=== PATIENT | male | born 1970 | race Caucasian/White ===

== ENCOUNTER 2016-12-13 05:47 | Emergency (ER) | payer MEDICARE, MEDICAID ==
[~2016-12-13] VITALS: Ht 182.9 cm; Wt 112.0 kg
[~2016-12-13 05:47] MED LIST: CYCL10TA9 PO; DESV50TA; HYDR-229 PO; HYDR1TAB PO; LIDO20SO20 PO; MTF500T PO; NAPR-243 PO
[2016-12-13 05:56] VITALS: BP 146/98
[2016-12-13 06:04] LABS: BILIRUBIN,URINE NEGATIVE (NEGATIVE); KETONES,URINE 1+ (NEGATIVE); LEUKOCYTE ESTERASE ,URINE 2+ (NEGATIVE); NITRITE,URINE POSITIVE (NEGATIVE); PH,URINE 5 (5-9); PROTEIN,URINE 3+ (NEGATIVE); UROBILINOGEN,URINE 1 MG/DL (NORMAL)
[2016-12-13 06:14] LABS: BASOPHILS # (AUTO) 0.1 10^3/uL (0.0-0.1); BASOPHILS % (AUTO) 1 % (0-10); EOSINOPHILS # (AUTO) 0.3 10^3/uL (0.0-0.3); EOSINOPHILS % (AUTO) 4 % (0-10); LYMPHOCYTES % (AUTO) 26 % (12-44); MEAN CORPUSCULAR HEMOGLOBIN 29 PG (25-34); MEAN CORPUSCULAR HGB CONC 34 G/DL (32-36); MEAN CORPUSCULAR VOLUME 84 FL (80-99); MEAN PLATELET VOLUME 11.1 FL (7.4-10.4); MONOCYTES # (AUTO) 0.9 X 10^3 (0.0-1.0); MONOCYTES % (AUTO) 12 % (0-12); NEUTROPHILS # (AUTO) 4.4 X 10^3 (1.8-7.8); NEUTROPHILS % (AUTO) 58 % (42-75); PLATELET COUNT 194 10^3/uL (130-400); RED BLOOD COUNT 5.51 10^6/uL (4.35-5.85); RED CELL DISTRIBUTION WIDTH 13.5 % (10.0-14.5); WHITE BLOOD COUNT 7.6 10^3/uL (4.3-11.0)
[2016-12-13] MEDS ORDERED: KETOROLAC 30 MG/ML VIAL IVP ONE (06:15)
[2016-12-13] MEDS ORDERED: ONDANSETRON 4 MG/2 ML (SDV) Z0FRAN IVP ONE (06:15)
[2016-12-13] MEDS ORDERED: NS IV 1000 ML 1,000 ML IV ONE (06:28)
--- NOTE | 2016-12-13 06:28 | ED Abdominal Pain ---
General Chief Complaint: Abdominal/GI Problems Stated Complaint: LEFT SIDE PAIN,VOMITING Nursing Triage Note: LLQ ABDOMINAL PAIN Sepsis Screen: No Definite Risk Source of Information: Patient Exam Limitations: No Limitations History of Present Illness Time Seen By Provider: 06:05 Initial Comments This 46-year-old gentleman presents to the emergency room with sudden onset of left lower abdominal pain started at 02:00. Pain woke him from sleep. He has associated vomiting and gross hematuria. He denies any history of renal stones or other significant health problems. He reports a history of diabetes that resolved with weight loss. Allergies and Home Medications Allergies Coded Allergies: Penicillins (Verified Allergy, Unknown, RASH, 12/13/16) amoxicillin (Verified Adverse Reaction, Severe, yeast infection, 12/13/16) Home Medications Ciprofloxacin HCl 500 Mg Tablet, 500 MG PO BID, #20 Prescribed by: RODRIGO SILVESTRE on 12/13/16 0706 Hydrocodone/Acetaminophen 1 Each Tablet, 1-2 EACH PO Q6H PRN for PAIN, #30 Prescribed by: RODRIGO SILVESTRE on 12/13/16 0706 Ondansetron 4 Mg Tab.rapdis, 4 MG SL Q4H PRN for NAUSEA/VOMITING-1ST LINE, #10 Ref 1 Prescribed by: RODRIGO SILVESTRE on 12/13/16 0706 Review of Systems Constitutional: no symptoms reported EENTM: No Symptoms Reported Respiratory: No Symptoms Reported Cardiovascular: No Symptoms Reported Gastrointestinal: See HPI Genitourinary: See HPI Musculoskeletal: no symptoms reported Skin: no symptoms reported Psychiatric/Neurological: No Symptoms Reported Endocrine: See HPI Past Ejxxoqg-Jzryna-Xmboig Hx Patient Social History Alcohol Use: Denies Use Recreational Drug Use: Yes Drug of Choice: METH, CANNIBUS Smoking Status: Never a Smoker 2nd Hand Smoke Exposure: No Recent Foreign Travel: No Contact w/Someone Who Travel: No Recent Infectious Disease Expo: No Immunizations Up To Date Tetanus Booster (TDap): Unknown Seasonal Allergies Seasonal Allergies: No Surgeries HX Surgeries: No Respiratory Hx Respiratory Disorders: No Cardiovascular Hx Cardiac Disorders: No Neurological Hx Neurological Disorders: No Reproductive System Hx Reproductive Disorders: No Genitourinary Hx Genitourinary Disorders: No Gastrointestinal Hx Gastrointestinal Disorders: No Musculoskeletal Hx Musculoskeletal Disorders: No Endocrine Hx Endocrine Disorders: Yes (HAS BEEN OFF METFORMIN FOR 6 MONTHS BECAUSE OF WEIGHT LOSS) Endocrine Disorders: Diabetes, Non-Insulin dep HEENT HX ENT Disorders: No Cancer Hx Cancer: No Psychosocial Hx Psychiatric Problems: No Integumentary HX Skin/Integumentary Disorder: No Blood Transfusions Hx Blood Disorders: No Physical Exam Vital Signs VS - Last 72 Hours, by Label 12/13/16 05:56 Temp 98.1 Pulse 70 Resp 18 B/P (MAP) 146/98 Pulse Ox 100 O2 Delivery Room Air Capillary Refill : Less Than 3 Seconds General Appearance: WD/WN, moderate distress HEENT: normal ENT inspection Neck: normal inspection Respiratory: lungs clear, normal breath sounds, no respiratory distress, no accessory muscle use Cardiovascular: regular rate, rhythm, no edema, no murmur Gastrointestinal: normal bowel sounds, soft, tenderness (left lower quadrant) Extremities: normal inspection, no pedal edema Neurologic/Psychiatric: customer success director II-XII nml as tested, no motor/sensory deficits, alert, normal mood/affect, oriented x 3 Skin: normal color, warm/dry Progress/Results/Core Measures Results/Orders Lab Results Laboratory Tests Test 12/13/16 05:55 12/13/16 06:06 Range/Units Urine Color TELLO H Urine Clarity SLIGHTLY CLOUDY Urine pH 5 5-9 Urine Specific [place] 1.025 H 1.016-1.022 Urine Protein 3+ H NEGATIVE Urine Glucose (UA) NEGATIVE NEGATIVE Urine Ketones 1+ H NEGATIVE Urine Nitrite POSITIVE H NEGATIVE Urine Bilirubin NEGATIVE NEGATIVE Urine Urobilinogen 1 NORMAL MG/DL Urine Leukocyte Esterase 2+ H NEGATIVE Urine RBC (Auto) 5+ H NEGATIVE Urine RBC >100 H /HPF Urine WBC 2-5 /HPF Urine Crystals NONE /LPF Urine Bacteria TRACE /HPF Urine Casts NONE /LPF Urine Mucus NEGATIVE /LPF Urine Culture Indicated YES White Blood Count 7.6 4.3-11.0 10^3/uL Red Blood Count 5.51 4.35-5.85 10^6/uL Hemoglobin 15.7 13.3-17.7 G/DL Hematocrit 46 40-54 % Mean Corpuscular Volume 84 80-99 FL Mean Corpuscular Hemoglobin 29 25-34 PG Mean Corpuscular Hemoglobin Concent 34 32-36 G/DL Red Cell Distribution Width 13.5 10.0-14.5 % Platelet Count 194 130-400 10^3/uL Mean Platelet Volume 11.1 H 7.4-10.4 FL Neutrophils (%) (Auto) 58 42-75 % Lymphocytes (%) (Auto) 26 12-44 % Monocytes (%) (Auto) 12 0-12 % Eosinophils (%) (Auto) 4 0-10 % Basophils (%) (Auto) 1 0-10 % Neutrophils # (Auto) 4.4 1.8-7.8 X 10^3 Lymphocytes # (Auto) 2.0 1.0-4.0 X 10^3 Monocytes # (Auto) 0.9 0.0-1.0 X 10^3 Eosinophils # (Auto) 0.3 0.0-0.3 10^3/uL Basophils # (Auto) 0.1 0.0-0.1 10^3/uL Sodium Level 138 135-145 MMOL/L Potassium Level 4.2 3.6-5.0 MMOL/L Chloride Level 104 98-107 MMOL/L Carbon Dioxide Level 22 21-32 MMOL/L Anion Gap 12 5-14 MMOL/L Blood Urea Nitrogen 21 H 7-18 MG/DL Creatinine 1.33 H 0.60-1.30 MG/DL Estimat Glomerular Filtration Rate 58 BUN/Creatinine Ratio 16 Glucose Level 264 H 70-105 MG/DL Calcium Level 9.5 8.5-10.1 MG/DL Total Bilirubin 0.6 0.1-1.0 MG/DL Aspartate Amino Transf (AST/SGOT) 15 5-34 U/L Alanine Aminotransferase (ALT/SGPT) 25 0-55 U/L Alkaline Phosphatase 95 40-136 U/L Total Protein 7.0 6.4-8.2 G/DL Albumin 4.4 3.2-4.5 G/DL Micro Results Microbiology 12/13/16 Urine Culture - Preliminary, Resulted My Orders Orders - RODRIGO LOPEZ MD Ua Culture If Indicated (12/13/16 05:59) Urine Culture (12/13/16 05:55) Ct Abd/Pelvis Wo(Kidney Stone) (12/13/16 06:22) Ns Iv 1000 Ml (Sodium Chloride 0.9%) (12/13/16 06:28) Ciprofloxacin Tablet (Cipro Tablet) (12/13/16 07:15) Medications Given in ED Vital Signs/I&O Vital Sign - Last 12Hours 12/13/16 05:56 Temp 98.1 Pulse 70 Resp 18 B/P (MAP) 146/98 Pulse Ox 100 O2 Delivery Room Air Blood Pressure Mean: 114 Progress Note #1: Time: 06:27 Progress Note Patient seen and examined. CT scan, Toradol, and Zofran have been ordered. IV fluids will be ordered as well. Ureteral stone is suspected. Progress Note #2: Progress Note Patient's symptoms were controlled with Toradol and Zofran. He was dispensed a strainer to collect stones. His blood sugar was noted to be elevated. He was advised to seek follow-up with his primary care provider and observe a low carbohydrate low sugar diet. Diagnostic Imaging Diagonstic Imaging: CT Plain Films/CT/US/NM/MRI: abdomen, pelvis Comments Stone search CT of the abdomen and pelvis viewed by me and report reviewed. See report below: NAME: SANDHYA FIGUEROA [facility] REC#: [id number] PT STATUS: DEP ER : 1970 PHYSICIAN: RODRIGO LOPEZ MD ADMIT DATE: 12/13/16/ER Signed Date of Exam: 12/13/16 CT ABD/PELVIS WO(KIDNEY STONE) PROCEDURE: CT urinary tract, rule out kidney stone. TECHNIQUE: Multiple contiguous axial images were obtained through the abdomen and pelvis without the use of intravenous contrast. INDICATION: Left flank pain. FINDINGS: The lung bases appear clear. The liver, the gallbladder, the adrenals and the pancreas appear unremarkable for an unenhanced exam. There is a calcification in the spleen with no associated soft tissue mass probably related to prior infection. There is mild hydroureteronephrosis and the left kidney and ureter secondary to ureterovesical junction stone measuring 4 mm. No urinary bladder stone. There is no ureteric stone seen. There is a nonobstructive 2 mm stone in the upper pole of the right kidney, however. The abdominal size normal in caliber. No para-aortic significantly enlarged lymph node is seen. There is a laxity of the anterior abdominal wall with diastases of the recti. There is a tiny fat-containing left periumbilical hernia. There is no bowel obstruction. The appendix is normal. No fluid collection or free fluid in the abdomen or pelvis seen. The osseous structures appear grossly unremarkable except for degenerative changes of the lumbar spine and SI joints. IMPRESSION: 1. Obstructive 4 mm stone at the left ureterovesical junction resulting in mild left hydroureteronephrosis. 2. Another stone measuring 2 mm, nonobstructive in the upper pole of the right kidney is seen. 3. Abdominal wall laxity with diastases of the recti. Tiny fat-containing periumbilical hernia. Dictated by: Dictated on workstation # [id number] Dict: 12/13/16 0809 Trans: 12/13/16 1035 Interpreted by: JAYDEN GARCIA MD Electronically signed by: JAYDEN GARCIA MD 12/13/16 1035 Departure Impression Impression: Primary Impression: Left ureteral stone Additional Impressions: Ureteral obstruction, left Urinary tract infection Qualified Codes: N39.0 - Urinary tract infection, site not specified; R31.9 - Hematuria, unspecified Nausea and vomiting Qualified Codes: R11.2 - Nausea with vomiting, unspecified Hyperglycemia Disposition: 01 HOME, SELF-CARE Condition: Improved Departure-Patient Inst. Decision time for Depature: 07:00 Referrals: CAMILLE MEYERS MD (PCP) Primary Care Physician CARRILLO CLAY MD Patient Instructions: Kidney Stones in Adults, Urinary Tract Infections in Adults Add. Discharge Instructions: Drink plenty of clear liquids. Use your pain medication as prescribed. Do not drive, make important decisions, or work with machinery or dangerous tools while on the pain medication. Follow-up with your primary care provider and/or a urologist as soon as possible. Contact information for Dr. Clay, a local urologist, has been provided. Use the Zofran (ondansetron) as prescribed for nausea. Return to the ER for worsening symptoms or other complications. Strain your urine and bring any kidney stones collected to your follow-up appointment. All discharge instructions reviewed with patient and/or family. Voiced understanding. Scripts Ondansetron (Zofran Odt) 4 Mg Tab.rapdis 4 MG SL Q4H Y for NAUSEA/VOMITING-1ST LINE, #10 TAB 1 Refill Prov: RODRIGO LOPEZ MD 12/13/16 Hydrocodone/Acetaminophen (Hydrocodon -Acetaminophen 5-325) 1 Each Tablet 1-2 EACH PO Q6H Y for PAIN, #30 TAB Prov: RODRIGO LOPEZ MD 12/13/16 Ciprofloxacin HCl (Cipro) 500 Mg Tablet 500 MG PO BID, #20 TAB Prov: RODRIGO LOPEZ MD 12/13/16 Copy Copies To 1: CAMILLE MEYERS MD, JOSHUA T MD December 13, 2016 06:28
[2016-12-13 06:32] LABS: ALBUMIN 4.4 G/DL (3.2-4.5); BILIRUBIN,TOTAL 0.6 MG/DL (0.1-1.0); CALCIUM 9.5 MG/DL (8.5-10.1); CREATININE SERUM 1.33 MG/DL (0.60-1.30); POTASSIUM 4.2 MMOL/L (3.6-5.0)
[2016-12-13] MEDS ORDERED: ONDA4TAB8 SL (07:06)
[2016-12-13] MEDS ORDERED: CIPR-225 PO (07:06)
[2016-12-13] MEDS ORDERED: HYDR-3812 PO (07:06)
[2016-12-13] MEDS ORDERED: CIPROFLOXACIN 500 MG (CIPRO) TABLET PO ONE (07:15)
--- NOTE | 2016-12-13 08:32 | Diagnostic Imaging Report ---
PROCEDURE: CT urinary tract, rule out kidney stone. TECHNIQUE: Multiple contiguous axial images were obtained through the abdomen and pelvis without the use of intravenous contrast. INDICATION: Left flank pain. FINDINGS: The lung bases appear clear. The liver, the gallbladder, the adrenals and the pancreas appear unremarkable for an unenhanced exam. There is a calcification in the spleen with no associated soft tissue mass probably related to prior infection. There is mild hydroureteronephrosis and the left kidney and ureter secondary to ureterovesical junction stone measuring 4 mm. No urinary bladder stone. There is no ureteric stone seen. There is a nonobstructive 2 mm stone in the upper pole of the right kidney, however. The abdominal size normal in caliber. No para-aortic significantly enlarged lymph node is seen. There is a laxity of the anterior abdominal wall with diastases of the recti. There is a tiny fat-containing left periumbilical hernia. There is no bowel obstruction. The appendix is normal. No fluid collection or free fluid in the abdomen or pelvis seen. The osseous structures appear grossly unremarkable except for degenerative changes of the lumbar spine and SI joints. IMPRESSION: 1. Obstructive 4 mm stone at the left ureterovesical junction resulting in mild left hydroureteronephrosis. 2. Another stone measuring 2 mm, nonobstructive in the upper pole of the right kidney is seen. 3. Abdominal wall laxity with diastases of the recti. Tiny fat-containing periumbilical hernia. Dictated by: Dictated on workstation # [id number]
== END 2016-12-13 08:31 | disposition home or self-care (01) ==
LOC: EDUNIT# 05:47 → ER 05:50
DX: N20.2 Calculus of kidney with calculus of ureter (principal); N39.0 Urinary tract infection, site not specified; M62.08 Separation of muscle (nontraumatic), other site; E11.9 Type 2 diabetes mellitus without complications
CPT/HCPCS: 36415; 74176; 80053; 81000; 85025; 87088; 96374; 96375

== ENCOUNTER 2016-12-15 10:57 | Outpatient (RCR) | payer MEDICARE, MEDICAID | END 2017-03-15 | disposition home or self-care (01) | LOC: LAB 10:57 | PROVIDERS: ATTEND Urology | DX: N20.0 Calculus of kidney (principal) ==

== ENCOUNTER → 2016-12-15 | Outpatient (CLI) | payer MEDICARE, MEDICAID ==
[~2016-12-15] MED LIST changes: +CIPR-225 PO; +HYDR-3812 PO; +ONDA4TAB8 SL
--- NOTE | 2016-12-15 15:10 | Diagnostic Imaging Report ---
EXAM: Abdomen at 10:19 a.m. INDICATION: Abdominal pain TECHNIQUE: A single supine view was obtained. FINDINGS: The recent CT abdomen/pelvis exam performed on 12/13/16 noted partial obstruction of the left collecting system due to a 4 mm calculus at the ureterovesical junction. The calculus still appears to be present on this study. There is no other sign of urolithiasis or nephrolithiasis. There is no acute abnormality identified. IMPRESSION: 1. The small nonobstructive calculus at the ureterovesical junction on the left, seen previously, still appears to be present. The calculus seems unchanged in position. 2. No new abnormality has developed. Dictated by: Dictated on workstation # [id number]
== END ==
LOC: RAD 09:54
PROVIDERS: ATTEND Urology
DX: N20.1 Calculus of ureter (principal)
CPT/HCPCS: 74000

== ENCOUNTER 2018-03-10 17:22 | Emergency (ER) | payer MEDICARE, MEDICAID ==
[~2018-03-10] VITALS: Ht 185.4 cm; Wt 129.3 kg
[~2018-03-10 17:22] MED LIST changes: +ACHD5005 PO; -HYDR-3812 PO
[2018-03-10] MEDS ORDERED: LIDOCAINE 2% VISCOUS 15 ML UDC PO ONE (17:45)
--- NOTE | 2018-03-10 17:45 | ED Integumentary General ---
General Chief Complaint: Bite-Animal/Human/Insect Stated Complaint: BITE IN GENITAL AREA Source: patient Exam Limitations: no limitations History of Present Illness Date Seen by Provider: Mar 10, 2018 Time Seen by Provider: 17:37 Initial Comments to ER with a 4 to five-day history of bug bite to the shaft of his penis.he believes he got this when he was camping down near [facility]. He denies any dysuria. Denies any scrotal pain or swelling, this is around the glans. He states is very painful. He did not actually see anything bite him.he is sexually active but states "I have only been with one woman in the past year and a half. He has no systemic symptoms such as joint pains, nausea, fevers, dysuria.no scrotal symptoms. States his girlfriend wanted him to be seen 2 days ago but he was too embarrassed. Timing/Duration: just prior to arrival Severity: moderate Location: genitalia Possible Cause: no cause identified Allergies and Home Medications Allergies Coded Allergies: Penicillins (Verified Allergy, Unknown, RASH, 12/13/16) amoxicillin (Verified Adverse Reaction, Severe, yeast infection, 12/13/16) Home Medications Ciprofloxacin HCl 500 Mg Tablet, 500 MG PO BID Prescribed by: RODRIGO SILVESTRE on 12/13/16 0706 Hydrocodone Bit/Acetaminophen 1 Each Tablet, 1-2 EACH PO Q6H PRN for PAIN Prescribed by: RODRIGO SILVESTRE on 12/13/16 0706 Ondansetron 4 Mg Tab.rapdis, 4 MG SL Q4H PRN for NAUSEA/VOMITING-1ST LINE Prescribed by: RODRIGO SILVESTRE on 12/13/16 0706 Patient Home Medication List Home Medication List Reviewed: Yes Constitutional: see HPI EENTM: see HPI Respiratory: no symptoms reported Cardiovascular: no symptoms reported Genitourinary: see HPI Musculoskeletal: no symptoms reported Skin: see HPI, lesions Psychiatric/Neurological: No Symptoms Reported Past Rlngbqn-Kmocdy-Wbhkma Hx Patient Social History Drug of Choice: METH, CANNIBUS 2nd Hand Smoke Exposure: No Recent Foreign Travel: No Contact w/Someone Who Travel: No Immunizations Up To Date Tetanus Booster (TDap): Unknown Seasonal Allergies Seasonal Allergies: No Past Medical History Surgeries: No Respiratory: No Cardiac: No Neurological: No Reproductive Disorders: No Genitourinary: No Gastrointestinal: No Musculoskeletal: No Endocrine: No Diabetes, Non-Insulin dep HEENT: No Cancer: No Psychosocial: No Integumentary: No Physical Exam Vital Signs Vital Signs - First Documented 03/10/18 17:34 Temp 98.9 Pulse 89 Resp 20 B/P (MAP) 130/104 (113) O2 Delivery Room Air Capillary Refill : General Appearance: WD/WN, no apparent distress HEENT: PERRL/EOMI, normal ENT inspection Neck: non-tender, full range of motion Respiratory: no respiratory distress, no accessory muscle use Gastrointestinal: normal bowel sounds, non tender Neurologic/Psychiatric: alert, normal mood/affect, oriented x 3 Skin: normal color, warm/dry, other (no erythema or swelling crepitus or involvement whatsoever of the scrotum.) Skin Problem Location: other (genitalia) Skin Problem Character: other (maceration around the proximal glans of the penis with some erythema and faint swelling as well. There are 2 ulcerated lesions on the left side. He states this is very tender. He has no difficulty with urination reported. He has diabetes but does not require any medications.) Progress/Results/Core Measures Results/Orders My Orders Orders - RADHA LOYOLA APRN Wound Culture (03/10/18 17:34) Virus Culture (03/10/18 17:34) Nystatin Cream (Mycostatin Cream) (03/10/18 21:00) Lidocaine 2% Viscous 15 Ml (Xylocaine Vi (03/10/18 17:45) Mupirocin Ointment (Bactroban Ointment (03/10/18 21:00) Mupirocin Ointment (Bactroban Ointment (03/10/18 17:47) Medications Given in ED Current Medications Medications Dose Ordered Sig/Akiko Route Start Time Stop Time Status Last Admin Dose Admin Lidocaine HCl 5 ml ONCE ONCE PO 03/10/18 17:45 03/10/18 17:46 DC 03/10/18 17:50 5 ML Vital Signs/I&O 03/10/18 17:34 Temp 98.9 Pulse 89 Resp 20 B/P (MAP) 130/104 (113) O2 Delivery Room Air Departure Communication (Admissions) I would have concerns about a candidal balanitis versus herpes simplex. Culture has been obtained for virus culture and I'll put him on acyclovir empirically pending this culture. He's also been given mupirocin cream and nystatin cream to mix together and apply twice daily in addition to lidocaine topical for pain control. Impression Primary Impression: Balanitis Disposition: 01 HOME, SELF-CARE Condition: Stable Departure-Patient Inst. Decision time for Depature: 17:40 Referrals: CAMILLE MEYERS MD (PCP/Family) Primary Care Physician Patient Instructions: Nhan (COURTNEY) Add. Discharge Instructions: 1. Pull back the foreskin and wash the area gently with soap and water twice daily. Then mix the antifungal and antibiotic cream together and applied twice daily. As embarrassing as this may be for you, it is very important that you follow-up with your primary care provider within 1 week for recheck. Return to ER for any worsening. I suspect this is a condition called 'balanitis' from yeast but the other thing this could be is a herpes simplex outbreak. The virus culture takes about a week to come back, the other wound culture takes about 3 days. We will call you if any additional treatment as needed. It is very important to follow-up however. Avoid sexual intercourse until this is resolved.All discharge instructions reviewed with patient and/or family. Voiced understanding. Scripts Acyclovir (Acyclovir) 200 Mg Capsule 200 MG PO Q4H, #28 CAP Prov: RADHA LOYOLA APRN 03/10/18 Copy Copies To 1: CAMILLE MEYERS MD, PETER J APRN Mar 10, 2018 17:45
[2018-03-10] MEDS ORDERED: MUPIROCIN 2% OINT 22 GM (BACTROBAN) TUBE ONE (17:47)
[2018-03-10] MEDS ORDERED: ACYC200C PO (17:58)
[2018-03-10] MEDS ORDERED: ACYCLOVIR 400 MG TABLET (ZOVIRAX) PO SCH (18:00)
[2018-03-10 18:15] VITALS: BP 130/104
[2018-03-10] MEDS ORDERED: MUPIROCIN 2% OINT 22 GM (BACTROBAN) TUBE TOP SCH (21:00)
[2018-03-10] MEDS ORDERED: NYSTATIN CREAM (MYCOSTATIN) 30 GM TUBE TP SCH (21:00)
== END 2018-03-10 18:17 | disposition home or self-care (01) ==
LOC: EDUNIT# 17:22 → ER 17:24
DX: N48.1 Balanitis (principal); E11.9 Type 2 diabetes mellitus without complications; F12.10 Cannabis abuse, uncomplicated; F15.10 Other stimulant abuse, uncomplicated; Z88.0 Allergy status to penicillin
CPT/HCPCS: 87070; 87205; 87252; 99283

== ENCOUNTER 2018-08-05 09:34 | Emergency (ER) | payer MEDICARE, MEDICAID ==
[~2018-08-05] VITALS: Ht 182.9 cm; Wt 117.9 kg
[~2018-08-05 09:34] MED LIST changes: +ACYC200C PO
[2018-08-05] MEDS ORDERED: TETANUS,DIPTH,PERTUSS P/F (BOOSTRIX) 0.5 ML VIAL IM ONE (09:45)
[2018-08-05] MEDS ORDERED: LISI10TA2 (09:49)
--- NOTE | 2018-08-05 10:28 | Diagnostic Imaging Report ---
INDICATION: Dog bite to the right third finger. TIME OF EXAM: 10:34 AM FINDINGS: Multiple views of the right third finger were obtained. The alignment is normal. The phalanges appear intact. No fractures are seen. No definite radiopaque soft tissue foreign body is seen. IMPRESSION: No acute abnormality is detected. Dictated by: Dictated on workstation # [id number]
[2018-08-05] MEDS ORDERED: CLIN300C11 PO (10:44)
--- NOTE | 2018-08-05 10:44 | ED Upper Extremity ---
General Chief Complaint: Bite-Animal/Human/Insect Stated Complaint: R HAND DOG BITE Nursing Triage Note: ATTEMPTING TO LET NEIGHBORS [employer] OUT OF THE THE HOUSE AND THE DOG BIT HIM ON HIS RIGHT MIDDLE FINGER. PT STATES IMMUNIZATIONS ARE UTD ON THE DOG ET HE DOES NOT WANT TO FILE A POLICE REPORT. Nursing Sepsis Screen: No Definite Risk Source: patient Exam Limitations: no limitations History of Present Illness Date Seen by Provider: Aug 05, 2018 Time Seen by Provider: 10:42 Initial Comments Patient went to take care of his neighbor's dog while they are out of town, the dog bit the right middle finger. Patient needs a tetanus vaccination. Dog was up -to-date on its own vaccinations including rabies. Onset: just prior to arrival Severity: moderate Pain/Injury Location: right 3rd finger Allergies and Home Medications Allergies Coded Allergies: Penicillins (Verified Allergy, Unknown, RASH, 12/13/16) amoxicillin (Verified Adverse Reaction, Severe, yeast infection, 12/13/16) Patient Home Medication List Home Medication List Reviewed: Yes Review of Systems Constitutional: see HPI EENTM: see HPI Respiratory: no symptoms reported Cardiovascular: no symptoms reported Genitourinary: no symptoms reported Musculoskeletal: no symptoms reported Skin: see HPI Psychiatric/Neurological: No Symptoms Reported Past Ymyjrhu-Yajhnh-Mainqk Hx Patient Social History Alcohol Use: Past History Recreational Drug Use: Yes Drug of Choice: POT Smoking Status: Never a Smoker 2nd Hand Smoke Exposure: No Recent Foreign Travel: No Contact w/Someone Who Travel: No Recent Infectious Disease Expo: No Immunizations Up To Date Tetanus Booster (TDap): More than 5yrs Seasonal Allergies Seasonal Allergies: No Past Medical History Surgeries: No Respiratory: No Cardiac: Yes Hypertension Neurological: No Reproductive Disorders: No Genitourinary: No Gastrointestinal: No Musculoskeletal: No Endocrine: No Diabetes, Non-Insulin dep HEENT: No Cancer: No Psychosocial: No Integumentary: No Blood Disorders: No Physical Exam Vital Signs Vital Signs - First Documented 08/05/18 09:38 Temp 98.0 Pulse 86 Resp 16 B/P (MAP) 160/112 (128) Pulse Ox 98 O2 Delivery Room Air Capillary Refill : Less Than 3 Seconds Height, Weight, BMI Height: 6'1.00" Weight: 260lbs. oz. 117.980114vn; BMI Method:Stated General Appearance: WD/WN, no apparent distress HEENT: PERRL/EOMI, normal ENT inspection Respiratory: no respiratory distress, no accessory muscle use Gastrointestinal: non tender, soft Shoulder: normal inspection, non-tender Elbow/Forearm: normal inspection, non-tender Wrist: Yes normal inspection, Yes non-tender Hand: Right, laceration (superficial lacerations/abrasions to the dorsal aspect of the right middle finger without deformity or swelling or erythema) Neurologic/Psychiatric: alert, normal mood/affect, oriented x 3 Skin: normal color, warm/dry Progress/Results/Core Measures Results/Orders Medications Given in ED Current Medications Medications Dose Ordered Sig/Akiko Route Start Time Stop Time Status Last Admin Dose Admin Diphtheria/ Tetanus/Acell Pertussis 0.5 ml ONCE ONCE IM 08/05/18 09:45 08/05/18 09:46 DC 08/05/18 10:28 0.5 ML Vital Signs/I&O 08/05/18 09:38 Temp 98.0 Pulse 86 Resp 16 B/P (MAP) 160/112 (128) Pulse Ox 98 O2 Delivery Room Air Blood Pressure Mean: 128 Departure Impression Primary Impression: Dog bite Qualified Codes: W54.0XXA - Bitten by dog, initial encounter Disposition: HOME, SELF-CARE Condition: Stable Departure-Patient Inst. Decision time for Depature: 10:43 Referrals: CAMILLE MEYERS MD (PCP/Family) Primary Care Physician Patient Instructions: Animal Bites (DC) Add. Discharge Instructions: 1. Wash this twice daily with soap and water. Return to ER for any redness, swelling or sign of infection. Take antibiotics as directed starting today. All discharge instructions reviewed with patient and/or family. Voiced understanding. Scripts Clindamycin HCl (Clindamycin HCl) 300 Mg Capsule 300 MG PO TID, #9 CAP Prov: RADHA LOYOLA APRN 08/05/18 RADHA LOYOLA APRN Aug 05, 2018 10:44
[2018-08-05 10:50] VITALS: BP 160/112
== END 2018-08-05 10:50 | disposition home or self-care (01) ==
LOC: EDUNIT# 09:34 → ER 09:35
DX: S61.252A Open bite of right middle finger without damage to nail, initial encounter (principal); I10 Essential (primary) hypertension; E11.9 Type 2 diabetes mellitus without complications; Z88.0 Allergy status to penicillin; W54.0XXA Bitten by dog, initial encounter
CPT/HCPCS: 73140; 90715

== ENCOUNTER 2018-08-20 09:21 | Outpatient (CLI) | payer MEDICARE, MEDICAID ==
[~2018-08-20] VITALS: Ht 185.4 cm; Wt 117.9 kg
[~2018-08-20 09:21] MED LIST changes: +CLIN300C11 PO; +LISI10TA2 PO
[2018-08-20] MEDS ORDERED: OMEP20CA12 PO (09:52)
[2018-08-20] MEDS ORDERED: SUCR1TAB PO (09:52)
== END 2018-08-20 09:55 | disposition home or self-care (01) ==
LOC: PREOP 09:21
PROVIDERS: ATTEND Surgery
DX: Z01.818 Encounter for other preprocedural examination (principal)

== ENCOUNTER 2018-08-21 10:48 | Day surgery (SDC) | payer MEDICARE, MEDICAID ==
[~2018-08-21] VITALS: Ht 185.4 cm; Wt 117.9 kg
[~2018-08-21 10:48] MED LIST changes: +OMEP20CA12 PO; +SUCR1TAB PO
[2018-08-21 10:50] VITALS: BP 136/97
[2018-08-21] MEDS ORDERED: NS IV 500 ML 500 ML IV PRN (10:54)
[2018-08-21] MEDS ORDERED: HURRICAINE EXT TUBE (BENZOCAINE) XX PRN (11:00)
[2018-08-21] MEDS ORDERED: LIDOCAINE JELLY 2% 6 ML SYRINGE MM PRN (11:00)
[2018-08-21] MEDS ORDERED: MIDAZOLAM 2 MG/2 ML (VERSED) VIAL IVP ONE (11:00)
[2018-08-21] MEDS ORDERED: fentaNYL INJECTION 100 MCG/2 ML AMP IVP ONE (11:00)
--- NOTE | 2018-08-21 11:09 | Conscious Sedation/ASA ---
Conscious Sedation Pre-Proced Time 11:00 ASA Score 2 For ASA 3 and 4: Consider anesthesia and medical clearance. Also, for patients with a history of failed moderate sedation consider anesthesia. Airway Lungs Heart ASA score ASA 1: a normal healthy patient ASA 2: a patient with a mild systemic disease (mid diabetes, controlled hypertension, obesity ASA 3: a patient with a severe systemic disease that limits activity (angina , COPD, prior Myocardial infarction) ASA 4: a patient with an incapacitating disease that is a constant threat to life (CHF, renal failure) ASA 5: a moribund patient not expected to survive 24 hrs. (ruptured aneurysm) ASA 6: a declared brain patient whose organs are being harvested. For emergent operations, add the letter E after the classification Mallampati Classification Grade 2 Sedation Plan Analgesia, Amnesia, Plan communicated to team members, Discussed options with patient/fam, Discussed risks with patient/fam The patient is an appropriate candidate to undergo the planned procedure, sedation, and anesthesia. The patient immediately re-assessed prior to indication. SNEHAL STREETER MD Aug 21, 2018 11:09
--- NOTE | 2018-08-21 11:10 | Progress Note-Pre Operative ---
Pre-Operative Progress Note H&P Reviewed The H&P was reviewed, patient examined and no changes noted. Date Seen by Provider: Aug 21, 2018 Time Seen by Provider: 11:00 Date H&P Reviewed: Aug 21, 2018 Time H&P Reviewed: 11:00 Pre-Operative Diagnosis: GERD, rectal bleed SNEHAL STREETER MD Aug 21, 2018 11:10
[2018-08-21] MEDS ORDERED: ONDANSETRON 4 MG/2 ML (SDV) Z0FRAN IV PRN (11:15)
[2018-08-21] MEDS ORDERED: ACETAMINOPHEN 325 MG TABLET PO PRN (11:15)
[2018-08-21] MEDS ORDERED: morphine INJ 10 MG/ML 1ML (SYR OR VIAL) IV PRN (11:15)
[2018-08-21] MEDS ORDERED: HYDROcodone/APAP 5 MG/325 MG (LORTAB) TAB PO PRN (11:15)
[2018-08-21] MEDS ORDERED: PROPOFOL INJECTION 50 ML IV ONE ×3 (11:37→12:39)
[2018-08-21] MEDS ORDERED: MIDAZOLAM 5 MG/5 ML (VERSED) VIAL ONE (11:37)
[2018-08-21] MEDS ORDERED: MIDAZOLAM 2 MG/2 ML (VERSED) VIAL ONE ×2 (11:39)
[2018-08-21] MEDS ORDERED: LIDOCAINE JELLY 2% 6 ML SYRINGE ONE (12:13)
--- NOTE | 2018-08-21 13:02 | Anesthesia-General Post-Op ---
MAC Patient Condition Mental Status/LOC: Same as Preop Cardiovascular: Satisfactory Nausea/Vomiting: Absent Respiratory: Satisfactory Pain: Controlled Complications: Absent Post Op Complications Complications None Follow Up Care/Instructions Patient Instructions None needed. Anesthesiology Discharge Order Discharge Order Patient is doing well, no complaints, stable vital signs, no apparent adverse anesthesia problems. No complications reported per nursing. LENA WHALEN CRNA Aug 21, 2018 13:02
--- NOTE | 2018-08-21 13:03 | Progress Note-Post Operative ---
Post-Operative Progess Note Surgeon (s)/Library Aide (s) Surgeon SNEHAL STREETER MD Library Aide: none Pre-Operative Diagnosis GERD, rectal bleed Post-Operative Diagnosis reflux esophagitis(stage 2), no HH, moderate diffuse gastritis. chronic stage 2 ext and int hemorrhoids. Procedure & Operative Findings Date of Procedure 08/21/18 Procedure Performed/Findings EGD with bx. Colonoscopy. Anesthesia Type MAC Estimated Blood Loss Estimated blood loss (mL): minimal Specimens/Packing Specimens Removed GE jxn , antrum SNEHAL STREETER MD Aug 21, 2018 13:03
--- NOTE | 2018-08-21 13:04 | Discharge Inst-Surgical ---
D/C Lap Instructions-SYL Will call for follow up and further directions. Activity as tolerated High Fiber Diet 25g or more per day Avoid Alcohol, Caffeine, Spicy [place] and Acid foods. Drink 64 fluid oz or more of fluids per day. Symptoms to Report: Fever over 101 degree F, Nausea/Vomiting If any problems/questions: Contact your physician or go to Emergency Room SNEHAL STREETER MD Aug 21, 2018 13:04
[2018-08-21 13:20] VITALS: BP 136/97
[2018-08-21 13:42] VITALS: BP 124/87
[2018-08-21 13:50] VITALS: BP 124/87
--- NOTE | 2018-08-21 21:27 | OPERATIVE REPORT ---
DATE OF SERVICE: 08/21/2018 ATTENDING PRIMARY CARE PHYSICIAN: Wilma Rose MD PREOPERATIVE DIAGNOSIS: Rectal bleeding, gastroesophageal reflux disease. POSTOPERATIVE DIAGNOSES: Reflux esophagitis stage II, no significant hiatal hernia, moderate gastritis, no distal obstructions. Chronic stage II external and internal hemorrhoids. No mucosal inflammatory changes. PROCEDURE: EGD with biopsy, colonoscopy. SURGEON: Snehal Streeter MD ANESTHESIA: Monitored anesthesia care. ESTIMATED BLOOD LOSS: Minimal. FINDINGS: EGD, reflux esophagitis stage II, no significant hiatal hernia. There were approximately 2 to 3 very small inflammatory polyps which appeared benign. There was some moderate severity of gastritis. There were no formal ulcerations, polyps or any neoplasms identified. Pylorus and duodenum appeared normal. No distal obstructions. Colonoscopy: Chronic stage II external and internal hemorrhoids. Prostate gland was palpable and appeared normal. The remainder of the rectum and colon were normal. There were no mucosal inflammatory changes to indicate any inflammatory bowel disease as well as no polyps or any neoplasms. DISPOSITION: The patient tolerated the procedure well. INDICATIONS: The patient is a 40-year-old male known to us. In April 2018, he became part of our bariatric surgical weight loss program for the laparoscopic gastric sleeve resection. He meets the medical criteria and does have comorbidities including gastroesophageal reflux disease as well as diabetes. He is in need of an EGD and colonoscopy. He does report that for the past several years he has had intermittent episodes of red blood per rectum. He does not report any major issues with diarrhea, no constipation as well as no family history of colon cancer. He also has had a longstanding history of gastroesophageal reflux disease; however, has had numerous risk factors in the past including a heavy smoking which he quit in 2010 as well as methamphetamine and cocaine use and quit in 2001 and currently does smoke marijuana and did previously drink alcohol as well. DESCRIPTION OF PROCEDURE: The patient was brought to the endoscopy suite, laid in left lateral decubitus position. After adequate IV pain and sedative medications and monitored anesthesia care, the mouthpiece was applied. The endoscope was placed in the mouth, visualizing the pharynx and hypopharyngeal region. Vocal cords, epiglottis and vallecula identified and appeared to be normal. Endoscope was gently intubated at the esophageal opening and esophagus insufflated. The endoscope was then advanced to the first, second and third portion of the esophagus at the level of the GE junction, a reflux esophagitis stage II identified. There were no ulcers or strictures identified in this region. A biopsy was taken using forceps with visualization of good hemostasis. The endoscope was then easily advanced in the stomach and endoscope retroflexed visualizing no significant hiatal hernia. In the fundus of the gallbladder, there were approximately three very small red inflammatory polyps which were very small, approximately 1 to 2 mm in size. There was moderate severity gastritis. There were no formal ulcerations, polyps or any neoplasms. A biopsy was taken of the antrum to rule out H. pylori with forceps with visualization of good hemostasis. The endoscope was then advanced to the pylorus into the first and second portion of the duodenum, which appeared normal and no distal obstructions. The endoscope was then slowly withdrawn while taking a second look and suctioning of residual air with no additional findings. The patient tolerated this portion of the procedure well. We will recommend continued medical management with the necessary lifestyle and diet accommodation including small and more frequent meals, avoiding to eating at night as well as head elevation while lying supine. He also needs to avoid caffeinated beverages, spicy, greasy and acidic foods. Any type of weight loss will also help with this type of symptoms. Under the same anesthesia, we then proceeded with colonoscopy portion of procedure. A digital rectal examination was performed, which revealed chronic stage II external and internal hemorrhoids not actively edematous or inflamed and no bleeding. Normal sphincter tone was felt and there were no palpable masses. Prostate gland was palpable and appeared normal. The endoscope was then intubated to the anus, rectum and gently insufflated. The endoscope was then advanced to the valves of King of the rectum with no mucosal inflammatory change to indicate any active proctitis. We then proceeded to the sigmoid colon where no diverticulosis identified. The endoscope was then advanced to the remainder of the descending, transverse and ascending colon to the cecum. These segments were normal. There were no mucosal inflammatory changes nor any polyps or any neoplasms identified. The endoscope was slowly withdrawn while taking a second look and suctioning residual air with no additional findings. The patient tolerated the procedure well. We will recommend medical management with high fiber diet with at least 30 grams of fiber per day as well as at least 64 fluid ounces of water daily to promote soft stools on a daily basis. Job ID: [id number] DocumentID: [id number] Dictated Date: 08/21/2018 12:59:28 Pump Service Supervisor Date: 08/21/2018 21:26:46 Dictated By: SNEHAL STREETER MD
== END 2018-08-21 13:50 | disposition home or self-care (01) ==
LOC: ENDO 10:48
PROVIDERS: ATTEND Surgery
DX: K21.0 Gastro-esophageal reflux disease with esophagitis (principal); K29.70 Gastritis, unspecified, without bleeding; K64.1 Second degree hemorrhoids; E11.9 Type 2 diabetes mellitus without complications; I10 Essential (primary) hypertension; Z79.899 Other long term (current) drug therapy; Z88.0 Allergy status to penicillin; Z87.891 Personal history of nicotine dependence

== ENCOUNTER → 2018-12-10 | Outpatient (CLI) | payer MEDICARE, MEDICAID | LOC: LAB 08:45 | PROVIDERS: ATTEND Urology | DX: N40.0 Benign prostatic hyperplasia without lower urinary tract symptoms (principal); E29.1 Testicular hypofunction | CPT/HCPCS: 36415; 84153; 84402; 84403 ==

== ENCOUNTER → 2020-03-17 | Outpatient (CLI) | payer MEDICARE, MEDICAID ==
[~2020-03-17] MED LIST changes: -OMEP20CA12 PO; +OMEP20CA18 PO
--- NOTE | 2020-03-17 16:57 | Diagnostic Imaging Report ---
Indication: Left ankle pain 3 views of the left ankle show no fracture, dislocation or other acute abnormalities. IMPRESSION: Negative left ankle Dictated by: Dictated on workstation # [id number]
== END ==
LOC: RAD 15:57
PROVIDERS: ATTEND Family Medicine
DX: M25.572 Pain in left ankle and joints of left foot (principal)
CPT/HCPCS: 73610

== ENCOUNTER 2020-06-20 22:20 | Emergency (ER) | payer MEDICARE, MEDICAID ==
[~2020-06-20] VITALS: Ht 182 cm; Wt 120.0 kg
--- NOTE | 2020-06-20 22:49 | ED Upper Extremity ---
General Chief Complaint: Laceration Stated Complaint: R HAND LACERATION Nursing Triage Note: PT TO ED W/ C/O LACERATIONS TO 3RD ET 4TH FINGERS OF RIGHT HAND. PT REPORTS WAS ARGUING W/ HIS 22Y/O/SON ET STATES HE "HIT A GLASS PIE MACIEL ET BROKE IT." PT ABLE TO MOVE HIS FINGERS W/O DIFFICULTY AT THIS TIME. Nursing Sepsis Screen: No Definite Risk History of Present Illness Date Seen by Provider: Jun 20, 2020 Time Seen by Provider: 22:25 Initial Comments 50-year-old male presents for lacerations to his right 3rd-4th fingers, volar surface. He states that he hit a Glass pie plate and it broke causing lacerations. He is a diabetic and takes metformin. He reports his last tetanus was 2 years ago. Onset: just prior to arrival Pain/Injury Location: right 3rd finger, right 4th finger Method of Injury: incised Allergies and Home Medications Allergies Coded Allergies: Penicillins (Verified Allergy, Unknown, RASH, 12/13/16) amoxicillin (Verified Adverse Reaction, Severe, yeast infection, 12/13/16) Home Medications Lisinopril 10 Mg Tablet, 10 MG PO DAILY, (Reported) Omeprazole 20 Mg Capsule.dr, 20 MG PO BID, (Reported) Sucralfate 1 Gm Tablet, 1 GM PO QID, (Reported) Patient Home Medication List Home Medication List Reviewed: Yes Review of Systems Constitutional: no symptoms reported, see HPI Skin: see HPI, other (abrasion right third finger, laceration right fourth finger.) All Other Systems Reviewed Negative Unless Noted: Yes Past Eollxyk-Lufitf-Ahebkt Hx Past Med/Social Hx: Reviewed Nursing Past Med/Soc Hx Patient Social History Alcohol Use: Occasionally Uses Recreational Drug Use: Yes (METH AND POT) Drug of Choice: POT, 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 Former Smoker, Quit: Aug 20, 2011 2nd Hand Smoke Exposure: No Recent Foreign Travel: No Contact w/Someone Who Travel: No Recent Infectious Disease Expo: No Recent Hopitalizations: No Physical Abuse: No Sexual Abuse: No Mistreated: No Fear: No Immunizations Up To Date Tetanus Booster (TDap): More than 5yrs Seasonal Allergies Seasonal Allergies: No Past Medical History Surgeries: Yes (knee scope, ) Respiratory: No Cardiac: Yes Hypertension Neurological: No Reproductive Disorders: No Genitourinary: No Gastrointestinal: Yes (rectal bleeding/abd pain) Musculoskeletal: No Endocrine: Yes Diabetes, Non-Insulin dep HEENT: No Cancer: No Psychosocial: No Integumentary: No Blood Disorders: No Physical Exam Vital Signs Vital Signs - First Documented 06/20/20 22:26 Temp 35.5 Pulse 93 Resp 20 B/P (MAP) 173/105 (127) Pulse Ox 99 O2 Delivery Room Air Capillary Refill : Less Than 3 Seconds Height, Weight, BMI Height: 6'1.00" Weight: 260lbs. 0.0oz. [id number]; 36.00 BMI Method:Stated General Appearance: WD/WN, no apparent distress Cardiovascular: normal peripheral pulses, regular rate, rhythm Respiratory: chest non-tender, lungs clear, normal breath sounds Hand: normal ROM, Right, abrasions (right third finger over the middle phalanx no active bleeding. cleaned with sterile water, triple antibiotic oint and bandaid applied), laceration (right fourth finger over the middle phalanx 1 cm) Neurologic/Tendon: normal sensation, normal tendon functions Neurologic/Psychiatric: no motor/sensory deficits, alert, normal mood/affect, oriented x 3 Skin: normal color, warm/dry Procedures/Interventions Wound Location: Upper Extremities (right fourth finger) Wound Length (cm): 1 Wound's Depth, Shape: superficial Wound Explored: clean Irrigated w/ Saline (ccs): 250 Volume Anesthetic (ccs): 2 Wound Debrided: minimal Suture: Ethlion Suture Size: 4-0 Number of Sutures: 2 Sterile Dressing Applied?: Yes Progress Wound well approximated, bulky sterile dressing applied. Patient tolerated procedure well. Progress/Results/Core Measures Results/Orders Vital Signs/I&O 06/20/20 22:26 Temp 35.5 Pulse 93 Resp 20 B/P (MAP) 173/105 (127) Pulse Ox 99 O2 Delivery Room Air Blood Pressure Mean: 127 Departure Impression Primary Impression: Abrasion of finger Qualified Codes: S60.419A - Abrasion of unspecified finger, initial encounter Additional Impression: Laceration of finger of right hand Qualified Codes: S61.214A - Laceration without foreign body of right ring finger without damage to nail, initial encounter Disposition: 01 HOME, SELF-CARE Condition: Improved Departure-Patient Inst. Decision time for Depature: 22:45 Referrals: CAMILLE MEYERS MD (PCP/Family) Primary Care Physician Patient Instructions: Laceration Repair With Stitches (DC), Skin Abrasions (DC) Add. Discharge Instructions: Keep the dressing dry and in place for 24 hours, you may re-inforce if needed. Do not submerge the wound in standing water (tub, pool, sink, clark, etc). Leave sutures in place, return to Emergency Dept or your Primary Care Provider in 7-10 days for removal. You may shower, do not have water hit directly over wound. Clean with peroxide after shower, leave open to air when at home, cover with dressing or band-aid when out of the house. Watch for signs of infection: Redness, increased tenderness, warmth, discolored drainage or foul smelling drainage. Return to the emergency department for new, urgent health care problems. All discharge instructions reviewed with patient and/or family. Voiced understanding. NATALIE ATKINSON Jun 20, 2020 22:49
--- NOTE | 2020-06-20 22:59 | NUR ---
PT DISCHARGED TO HOME W/ INSTR. PT TO RETURN IN 7-10 DAYS FOR SUTURE REMOVAL, SOONER FOR ANY SIGNS OR SYMPTOMS OF INFECTION OR OTHER CONCERNS. PT VOICED UNDERSTANDING
[2020-06-21 02:15] VITALS: BP 0/0
== END 2020-06-20 22:59 | disposition home or self-care (01) ==
LOC: EDUNIT# 22:20 → ER 22:22
DX: S61.214A Laceration without foreign body of right ring finger without damage to nail, initial encounter (principal); S60.412A Abrasion of right middle finger, initial encounter; I10 Essential (primary) hypertension; E11.9 Type 2 diabetes mellitus without complications; Z79.84 Long term (current) use of oral hypoglycemic drugs; Z87.891 Personal history of nicotine dependence; Z88.0 Allergy status to penicillin; Z88.1 Allergy status to other antibiotic agents; W25.XXXA Contact with sharp glass, initial encounter
CPT/HCPCS: 12001

== ENCOUNTER → 2020-08-03 | Outpatient (CLI) | payer MEDICARE, MEDICAID ==
[~2020-08-03] MED LIST changes: -CLIN300C11 PO; +CLIN300C12 PO
--- NOTE | 2020-08-03 10:45 | Diagnostic Imaging Report ---
INDICATION: Foot pain COMPARISON: None. FINDINGS: 3 views of the left foot demonstrate no acute fracture or dislocation. There are no focal osseous lesions. There is no soft tissue swelling. Joint spaces are well maintained. No radiopaque foreign bodies are seen. IMPRESSION: No acute fractures or dislocations of the left foot. Dictated by: Dictated on workstation # [id number]
== END ==
LOC: RAD 10:26
PROVIDERS: ATTEND Family Medicine
DX: M79.672 Pain in left foot (principal)
CPT/HCPCS: 73630

== ENCOUNTER → 2021-01-25 | Outpatient (CLI) | payer MEDICARE, MEDICAID ==
[~2021-01-25] VITALS: Ht 182.9 cm; Wt 129.5 kg
[~2021-01-25] MED LIST changes: +ACYC-108 PO; -ACYC200C PO; +AMLO-251 PO; +GLIM4TAB5 PO; -LISI10TA2 PO; +LISI10TA25 PO; +METF-399 PO
== END | disposition home or self-care (01) ==
LOC: PREOP 09:07
PROVIDERS: ATTEND Surgery
DX: Z01.818 Encounter for other preprocedural examination (principal)

== ENCOUNTER 2021-01-27 08:34 | Inpatient (IN) | payer MEDICARE, MEDICAID ==
--- NOTE | 2021-01-26 07:09 | HISTORY AND PHYSICAL ---
DATE OF SERVICE: PROCEDURE DATE: 01/27/2021. ATTENDING PRIMARY CARE PHYSICIAN: Dr. Rose. HISTORY OF PRESENT ILLNESS: The patient is a 50-year-old male with morbid obesity, who was interested in the laparoscopic gastric sleeve resection and meets the medical criteria for bariatric surgery. He reports that he began to gain the majority of his adult weight 19 years ago after he reports that he had clean from methamphetamine. He reports that since that time, he has tried diets such as a keto diet, low calorie diet, Weight Watchers as well as the avoidance of any sugar. He reports that he had little success with this diet. He reports that he has also tried exercising such as weight training as well as walking on a treadmill; however, would have little success. He also reports that he did try the medication phentermine in the past and he did lose a significant amount of weight. However, again this weight back after stopping the medication. His medical comorbidities related to obesity include type 2 diabetes, gastroesophageal reflux disease, and hypertension. PAST MEDICAL HISTORY: Type 2 diabetes, hypertension, history of alcoholism, history of methamphetamine use, gastroesophageal reflux disease. PAST SURGICAL HISTORY: Left knee arthroscopy in 2016. ALLERGIES: PENICILLIN. MEDICATIONS: Lisinopril, metformin. SOCIAL HISTORY: Previous for tobacco smoker, 2 packs per day for 25 years, quit in 2013. Previous for IV methamphetamine use, quit in 2001. Previous for alcoholism for 15 years, quit in 2018. FAMILY HISTORY: Father, diabetes, hypertension. Mother, diabetes, hypertension, and stroke. VITAL SIGNS: Blood pressure 163/98. Current weight is 275.7, height 5 feet 11 inches with a body mass index 38.5. REVIEW OF SYSTEMS: Well-nourished male in no acute distress. He is not experiencing any shortness of breath or difficulty breathing. No chest pain, palpitations or diaphoresis. No nausea, vomiting or abdominal pain. No diarrhea or constipation. No red blood per rectum. No dark tarry stools. No fever or chills. No recent overt weight loss. All other review of systems negative. PHYSICAL EXAMINATION: CHEST: Clear. Good breath sounds bilaterally. HEART: Regular, no murmurs. EXTREMITIES: No lower extremity edema. Negative Homans sign. HEENT: No scleral icterus. NECK: No cervical lymphadenopathy. ABDOMEN: Soft, nontender, nondistended. SKIN: Warm, dry and pink. NEUROLOGIC: Awake, alert and oriented x3. ASSESSMENT AND PLAN: A 50-year-old male with morbid obesity who is interested in the laparoscopic gastric sleeve resection and does meet the medical criteria for bariatric surgery. His medical comorbidities related to obesity include type 2 diabetes, gastroesophageal reflux disease, and hypertension. He has completed the necessary tests and evaluations. He was; however, found to have a small hiatal hernia with spontaneous gastroesophageal reflux disease on the upper GI. However, his other tests and evaluations were normal. At this time, we will proceed with scheduling him for the laparoscopic gastric sleeve resection with possible hiatal hernia repair. The risks and benefits of the procedure as well as the procedure and home care instructions were explained to the patient. It was also discussed with the patient in depth about preoperative as well as postoperative diet and the need to continue with a high protein, low carbohydrate diet with regular scheduled exercise after he is recovered from his surgery. The patient verbalized understanding of instructions and agrees to proceed as planned. Job ID: [id number] DocumentID: [id number] Dictated Date: 01/24/2021 10:28:02 Solutions Developer Date: 01/24/2021 11:20:30 Dictated By: RACHEL LEO APRN
[2021-01-27] VITALS (9 sets, daily range): BP systolic 147–183; BP diastolic 95–107
[~2021-01-27] VITALS: Ht 182.9 cm; Wt 129.5 kg
[~2021-01-27 08:34] MED LIST changes: +LACTATED RINGERS 1,000 ML IV PRN; +ceFAZolin 2 GM IV Premixed 50 ML IV ONE
[2021-01-27] MEDS ORDERED: proPOfol 200 MG/20 ML (DIPRIVAN) VIAL IV ONE (13:46)
[2021-01-27] MEDS ORDERED: SEVOFLURANE (ULTANE) 15 ML INHAL SOLN ONE ×2 (13:46→17:01)
[2021-01-27] MEDS ORDERED: ROCURONIUM 10 MG/ML 5 ML SYRINGE IV ONE ×2 (13:46→16:28)
[2021-01-27] MEDS ORDERED: LIDOCAINE PF 2% 5 ML (XYLOCAINE) VIAL ONE (13:46)
[2021-01-27] MEDS ORDERED: ONDANSETRON 4 MG/2 ML (SDV) Z0FRAN ONE (13:46)
[2021-01-27] MEDS ORDERED: fentaNYL INJ 100 MCG/2 ML AMP ONE (13:47)
[2021-01-27] MEDS ORDERED: MIDAZOLAM 2 MG/2 ML (VERSED) VIAL ONE (13:47)
[2021-01-27] MEDS ORDERED: LIDOCAINE/EPI 1%-1:200,000 (XYLOCAINE) 30 ML VIAL ONE (13:51)
[2021-01-27 14:00] LABS: AMPHETAMINE SCREEN, URINE NEGATIVE (NEGATIVE); BARBITURATE SCREEN URINE NEGATIVE (NEGATIVE); BENZODIAZEPINES SCREEN URINE NEGATIVE (NEGATIVE); CANNABINOID SCREEN, URINE POSITIVE (NEGATIVE); COCAINE SCREEN URINE NEGATIVE (NEGATIVE); METHADONE STAT NEGATIVE (NEGATIVE); METHAMPHETAMINE SCREEN URINE S NEGATIVE (NEGATIVE); OPIATE SCREEN URINE NEGATIVE (NEGATIVE); OXYCODONE STAT NEGATIVE (NEGATIVE); PROPOXYPHENE STAT NEGATIVE (NEGATIVE); TRICYCLIC ANTIDEPRESSANTS SCRE NEGATIVE (NEGATIVE)
--- NOTE | 2021-01-27 14:02 | Progress Note-Pre Operative ---
Pre-Operative Progress Note H&P Reviewed The H&P was reviewed, patient examined and no changes noted. Date Seen by Provider: Jan 27, 2021 Time Seen by Provider: 14:00 Date H&P Reviewed: Jan 27, 2021 Time H&P Reviewed: 13:55 Pre-Operative Diagnosis: Morbid obesity, HTN, GERD, diabetes type II RACHEL LEO APRN Jan 27, 2021 14:02
--- NOTE | 2021-01-27 14:04 | Progress Note-Pre Operative ---
Pre-Operative Progress Note H&P Reviewed The H&P was reviewed, patient examined and no changes noted. Date Seen by Provider: Jan 27, 2021 Time Seen by Provider: 13:00 Date H&P Reviewed: Jan 27, 2021 Time H&P Reviewed: 13:55 Pre-Operative Diagnosis: morbid obesity, HTN, diabetes SNEHAL STREETER MD Jan 27, 2021 14:04
--- NOTE | 2021-01-27 14:05 | Discharge Inst-Surgical ---
D/C Lap Instructions-LISETO Reconcile Patient Problems Problems Reviewed?: Yes New, Converted, or Re-Newed RX: RX on Chart Follow Up Appt in 2 weeks Activity as tolerated No driving for 24 hours No driving while on pain medications Incentive Spirometry use every 2 hours while awake Clear liquid diet for 2 weeks Symptoms to Report: Fever over 101 degree F, Nausea/Vomiting Infection Signs and Symptoms to report: Increased redness, Foul odor of wound, Increased drainage Bathing instructions: May shower Operative Area Clean/Dry; Keep incision clean/dry If any problems/questions: Contact your physician or go to Emergency Room RACHEL LEO APRN Jan 27, 2021 14:04
[2021-01-27] MEDS ORDERED: oxyCODONE 5 MG/5 ML ORAL SOLN (roxiCODONE) 5 ML UDC PO PRN (14:15)
[2021-01-27] MEDS ORDERED: diphenhydrAMINE 50 MG/ML INJ (BENADRYL) IVP PRN (14:15)
[2021-01-27] MEDS ORDERED: diphenhydrAMINE 50 MG/ML INJ (BENADRYL) IV PRN (14:15)
[2021-01-27] MEDS ORDERED: NS IV 1000 ML 1,000 ML IV SCH (14:15)
[2021-01-27] MEDS ORDERED: METOCLOPRAMIDE INJ 10 MG/2 ML (REGLAN) IV PRN (14:15)
[2021-01-27] MEDS ORDERED: NALOXONE 0.4 MG/ML 1 ML (NARCAN) VIAL IV PRN (14:15)
[2021-01-27] MEDS ORDERED: ONDANSETRON 4 MG/2 ML (SDV) Z0FRAN IV PRN (14:15)
[2021-01-27] MEDS ORDERED: fentaNYL INJ 1,000 MCG in NS (IVPB) 80 ML IV SCH (14:15)
[2021-01-27] MEDS ORDERED: ceFAZolin 2 GM IV Premixed 50 ML ONE (14:25)
[2021-01-27] MEDS ORDERED: ceFAZolin 2 GM IV Premixed 50 ML IV ONE (15:00)
[2021-01-27 15:08] LABS: BASOPHILS # (AUTO) 0.1 10^3/uL (0.0-0.1); BASOPHILS % (AUTO) 1 % (0-10); EOSINOPHILS # (AUTO) 0.2 10^3/uL (0.0-0.3); EOSINOPHILS % (AUTO) 3 % (0-10); HEMATOCRIT 47 % (40-54); HEMOGLOBIN 15.8 g/dL (13.3-17.7); LYMPHOCYTES # (AUTO) 1.9 10^3/uL (1.0-4.0); LYMPHOCYTES % (AUTO) 32 % (12-44); MEAN CORPUSCULAR HEMOGLOBIN 28 pg (25-34); MEAN CORPUSCULAR HGB CONC 33 g/dL (32-36); MEAN CORPUSCULAR VOLUME 84 fL (80-99); MEAN PLATELET VOLUME 11.5 fL (9.0-12.2); MONOCYTES # (AUTO) 0.7 10^3/uL (0.0-1.0); MONOCYTES % (AUTO) 11 % (0-12); NEUTROPHILS # (AUTO) 3.1 10^3/uL (1.8-7.8); NEUTROPHILS % (AUTO) 53 % (42-75); PLATELET COUNT 210 10^3/uL (130-400); WHITE BLOOD COUNT 5.8 10^3/uL (4.3-11.0)
[2021-01-27] MEDS: LACTATED RINGERS 1,000 ML IV PRN ×2 (15:52→17:04)
[2021-01-27] MEDS: ENOXAPARIN 30 MG/0.3 ML (LOVENOX) SYR SC SCH (16:11)
[2021-01-27] MEDS: RT-ALBUTEROL SULF 2.5 MG/3 ML PRE-MIX VIAL INH SCH ×3 (16:11→21:01)
[2021-01-27] MEDS: LACTATED RINGERS 1,000 ML IV SCH ×2 (16:11→18:32)
[2021-01-27] MEDS ORDERED: GLYCOPYRROLATE 0.2 MG/ML (ROBINUL) 2 ML VIAL ONE (16:55)
[2021-01-27] MEDS ORDERED: NEOSTIGMINE 3 MG/3 ML VIAL ONE (16:55)
[2021-01-27] MEDS ORDERED: HYDROmorphone 2 MG/ML VIAL (DILAUDID) ONE (17:03)
[2021-01-27] MEDS ORDERED: MEPERIDINE (DEMEROL) INJ 50 MG/ML IVP ONE (17:45)
[2021-01-27] MEDS ORDERED: morphine INJ 10 MG/ML 1ML (SYR OR VIAL) IVP ONE (17:45)
[2021-01-27] MEDS ORDERED: HYDROmorphone 2 MG/ML VIAL (DILAUDID) IV ONE (17:45)
[2021-01-27] MEDS: ONDANSETRON 4 MG/2 ML (SDV) Z0FRAN IVP PRN ×2 (18:00→18:50)
--- NOTE | 2021-01-27 18:03 | Progress Note-Post Operative ---
Post-Operative Progess Note Surgeon (s)/Manager Art (s) Surgeon SNEHAL STREETER MD Manager Art: bertha callaway BIOMEDICAL MANAGER Pre-Operative Diagnosis morbid obesity, HTN, diabetes, GERD Post-Operative Diagnosis same, mild-moderate hiatal hernia Procedure & Operative Findings Date of Procedure 01/27/21 Procedure Performed/Findings laparoscopic hiatal hernia repair, gastric sleeve resection. Anesthesia Type get Estimated Blood Loss Estimated blood loss (mL): minimal Specimens/Packing Specimens Removed stomach SNEHAL STREETER MD Jan 27, 2021 18:03
[2021-01-27] MEDS: ONDANSETRON 4 MG/2 ML (SDV) Z0FRAN IVP SCH ×2 (18:38→23:39)
[2021-01-27] MEDS: METOCLOPRAMIDE INJ 10 MG/2 ML (REGLAN) IVP SCH ×2 (18:38→23:39)
[2021-01-27] MEDS: CLINDAMYCIN 900 MG/50 ML IVPB 50 ML IV SCH (21:36)
--- NOTE | 2021-01-27 22:48 | OPERATIVE REPORT ---
DATE OF SERVICE: 01/27/2021 ATTENDING PRIMARY CARE PHYSICIAN: Dr. Wilma Rose. PREOPERATIVE DIAGNOSES: Morbid obesity, hypertension, diabetes, gastroesophageal reflux disease. POSTOPERATIVE DIAGNOSES: Morbid obesity, hypertension, diabetes, gastroesophageal reflux disease. PROCEDURE: Laparoscopic gastric sleeve resection and hiatal hernia repair. SURGEON: Snehal Streeter MD. VETERINARY NURSE: Alvarado Lambert APRN. ANESTHESIA: General endotracheal. ESTIMATED BLOOD LOSS: Minimal. FINDINGS: Small to moderate size hiatal hernia, mild to moderate liver steatosis. DISPOSITION: The patient tolerated the procedure well. INDICATIONS: The patient is a 50-year-old male with morbid obesity, who is interested in the laparoscopic gastric sleeve resection and meets the medical criteria for bariatric surgery. He reports beginning to gain majority of adult weight 19 years ago. He admits that he had abuse issues with methamphetamine as well as alcohol and smoking; however, completely quit and has never restarted. He reports that after being clean from illicit drugs, he did gain a significant amount of weight over time. He states that he has tried number of diet and exercise attempts with no success. He has tried diet programs including ketogenic diet, low calorie diet, Weight Watchers as well as avoidance of any sugars with no success. He has also tried exercise regimens including resistance weight training, walking, treadmill and again would have little success. He has also tried medications including phentermine and states that he would lose some weight; however, would regain the weight back after discontinuing the medication. His medical comorbidities related to his obesity include diabetes, hypertension and gastroesophageal reflux disease. The patient also had an upper GI contrast study, which did show a hiatal hernia. DESCRIPTION OF PROCEDURE: The patient was brought to the operating room and laid supine on the table. After adequate IV pain and sedative medications and general endotracheal intubation, the abdomen was prepped and draped in standard surgical fashion. A 0.5% Marcaine with epinephrine was used to anesthetize overlying skin in the left upper abdominal quadrant and a transverse skin incision made using 15 blade. Veress needle inserted with low opening pressure of 0 mmHg and the abdomen was then insufflated to 15 mmHg pressure. Veress needle removed and a 5 mm XL trocar placed followed by a 5 mm 45-degree angle laparoscope visualizing the peritoneal cavity. The Veress needle removed and a 5 mm XL trocar placed followed by a 5 mm 45-degree angle laparoscope visualizing the peritoneal cavity. A 4-quadrant abdominal exploration was performed. There was a moderate liver steatosis as well as hepatomegaly. The gallbladder appeared normal. After inspecting the diaphragmatic hiatus, there was a small to moderate size hiatal hernia identified. Under direct visualization, we then proceeded to place a midabdominal left of midline, 10 mm port after the skin and peritoneal lining were anesthetized using 0.5% Marcaine with epinephrine and a transverse skin incision made using 15 blade. In a similar manner, a midabdominal right of midline 15 mm port was placed. This was then followed by a right upper abdominal quadrant 5 mm port. The epigastric region was then anesthetized and a transverse skin incision made using 11 blade. A tract was then created through the abdominal wall layers using a trocar to a 5 mm port. Through this opening, a medium sized Nathansen liver retractor was placed and the left lobe of the liver retracted anteriorly and superiorly. The patient was then placed in steep reverse Trendelenburg position. We then measured 6 cm from the pylorus along the greater curvature and marked this with a marking pen. The gastrocolic ligament was then opened next to the stomach using the Sonicision entering the lesser sac. We then proceeded with inferior dissection until we were approximately 2 cm below our marking. We then proceeded cephalad taking down the short gastric vessels as well as the angle of His connective tissue fibers until the left suzi of the diaphragm was identified. We then proceeded with a dissection of the phrenoesophageal ligament anteriorly where a small to moderate size hiatal hernia was identified. To restore the anatomy, we decided to proceed with an anterior repair of the suzi well after a 36-Croatian ViSiGi was placed and the suzi was reapproximated loosely around the bougie using interrupted 0 interrupted 2-0 Surgidac sutures using the EndoStitch device with visualization of good hemostasis. Using the ViSiGi as our staple line guide, we then proceeded with gastric sleeve resection first starting with a 45 mm polyglycolic acid black load followed by two 60 mm black loads followed by 60 mm black load and a single 45 mm purple load completing our gastric sleeve resection leaving approximately 2 cm next to the gastroesophageal junction. A leak test was then performed to 30 mmHg pressure of air with no leak identified. The stomach was removed through the 15 mm port site. The fascia and peritoneum to the 10 and 15 mm port sites were then closed under direct visualization using a Burak-Sunil device and 0 Vicryl suture. The abdomen was desufflated and remaining ports removed. All skin incisions were closed using 4-0 Monocryl running subcuticular sutures. Wounds were then cleaned and covered with Dermabond. The patient tolerated the procedure well. We will proceed with adequate pain control with a CENTRAL SUPPLY TECH as well as DVT prophylaxis with early ambulation, calf SCDs as well as Lovenox injections. Tomorrow morning, we will start a phase 1 clear liquid diet. Once he is tolerating clears, has good pain control with oral pain medication and is ambulating well, we will discharge him home. He will be instructed to follow a phase 1 clear liquid diet for the next two weeks as well. Job ID: [id number] DocumentID: [id number] Dictated Date: 01/27/2021 17:18:15 Grab Operator Date: 01/27/2021 22:47:24 Dictated By: SNEHAL STREETER MD
[2021-01-28 00:14] VITALS: BP 157/103
[2021-01-28] MEDS: LACTATED RINGERS 1,000 ML IV SCH (00:15)
[2021-01-28] MEDS: RT-ALBUTEROL SULF 2.5 MG/3 ML PRE-MIX VIAL INH SCH ×2 (02:45→06:12)
[2021-01-28 03:47] VITALS: BP 172/92
[2021-01-28] MEDS: ENOXAPARIN 30 MG/0.3 ML (LOVENOX) SYR SC SCH (03:48)
[2021-01-28 06:03] LABS: HEMATOCRIT 48 % (40-54); HEMOGLOBIN 16.2 g/dL (13.3-17.7); MEAN CORPUSCULAR HEMOGLOBIN 28 pg (25-34); MEAN CORPUSCULAR HGB CONC 34 g/dL (32-36); MEAN CORPUSCULAR VOLUME 85 fL (80-99); MEAN PLATELET VOLUME 11.5 fL (9.0-12.2); PLATELET COUNT 162 10^3/uL (130-400); WHITE BLOOD COUNT 11.7 10^3/uL (4.3-11.0)
[2021-01-28] MEDS: ONDANSETRON 4 MG/2 ML (SDV) Z0FRAN IVP SCH (06:04)
[2021-01-28] MEDS: CLINDAMYCIN 900 MG/50 ML IVPB 50 ML IV SCH (06:04)
[2021-01-28] MEDS: METOCLOPRAMIDE INJ 10 MG/2 ML (REGLAN) IVP SCH (06:04)
[2021-01-28 06:19] LABS: CHLORIDE 102 MMOL/L (98-107); POTASSIUM 4.1 MMOL/L (3.6-5.0); SODIUM 136 MMOL/L (135-145)
[2021-01-28 06:21] LABS: GLUCOSE 241 MG/DL (70-105)
[2021-01-28 06:23] LABS: CARBON DIOXIDE 18 MMOL/L (21-32)
[2021-01-28 06:25] LABS: CREATININE SERUM 1.05 MG/DL (0.60-1.30); GFR ESTIMATED > 60
[2021-01-28 06:26] LABS: BUN/CREATININE RATIO 10
[2021-01-28 07:44] VITALS: BP 169/94
[2021-01-28] MEDS ORDERED: PANTOPRAZOLE 40 MG (PROTONIX) TAB PO SCH (09:00)
[2021-01-28] MEDS ORDERED: SENNA W/DOCUSATE (SENOKOT S) TABLET PO SCH (09:00)
[2021-01-28] MEDS ORDERED: PANTOPRAZOLE 40 MG (PROTONIX) VIAL IV SCH (09:00)
[2021-01-28] MEDS ORDERED: TRM50T PO (09:11)
[2021-01-28] MEDS ORDERED: PANT40SU PO (09:11)
[2021-01-28] MEDS ORDERED: ONDA4TAB11 PO (09:11)
[2021-01-28 11:11] VITALS: BP 169/94
[2021-01-28] MEDS ORDERED: ONDANSETRON 4 MG/2 ML (SDV) Z0FRAN IVP PRN (14:15)
[2021-01-28] MEDS ORDERED: METOCLOPRAMIDE INJ 10 MG/2 ML (REGLAN) IVP PRN (14:15)
--- NOTE | 2021-01-28 16:28 | Anesthesia-General Post-Op ---
General Patient Condition Mental Status/LOC: Same as Preop Cardiovascular: Satisfactory Nausea/Vomiting: Absent Respiratory: Satisfactory Pain: Controlled Complications: Absent Post Op Complications Complications None Follow Up Care/Instructions Patient Instructions None needed. Anesthesia/Patient Condition Patient Condition Patient is already discharged to home but she was doing well, no complaints, stable vital signs, no apparent adverse anesthesia problems per nursing staff prior to his discharge to home. JANEL HIRSCH DO Jan 28, 2021 16:28
== END 2021-01-28 11:56 | disposition home or self-care (01) | DRG 621 ==
LOC: 4TH 13:10 → SURG 13:11 → EDSTATUS 14:00 → SURG 14:57 → ICU 14:57 → 4TH 18:18
PROVIDERS: ADMIT Surgery; ATTEND Surgery
PROC: 0BQT4ZZ Repair Diaphragm, Percutaneous Endoscopic Approach (ICD-10-PCS; 2021-01-27)
PROC: 0DB64Z3 Excision of Stomach, Percutaneous Endoscopic Approach, Vertical (ICD-10-PCS; principal; 2021-01-27 15:14)
DX: E66.01 Morbid (severe) obesity due to excess calories (principal); K21.9 Gastro-esophageal reflux disease without esophagitis; I10 Essential (primary) hypertension; E11.9 Type 2 diabetes mellitus without complications; Z68.38 Body mass index [BMI] 38.0-38.9, adult; K44.9 Diaphragmatic hernia without obstruction or gangrene
CPT/HCPCS: 36415; 80048; 80306; 82947; 85025; 85027; 87081; 94640

== ENCOUNTER 2021-02-14 21:00 | Emergency (ER) | payer MEDICARE, MEDICAID ==
[~2021-02-14] VITALS: Ht 182.9 cm; Wt 108.4 kg
[~2021-02-14 21:00] MED LIST changes: -LACTATED RINGERS 1,000 ML IV PRN; +ONDA4TAB11 PO; +PANT40SU PO; +TRM50T PO; -ceFAZolin 2 GM IV Premixed 50 ML IV ONE
[2021-02-14 22:03] LABS: BILIRUBIN,URINE 2+ (NEGATIVE); CLARITY,URINE SL CLOUDY; COLOR,URINE DARK YELLOW; GLUCOSE, URINE (UA) NEGATIVE (NEGATIVE); KETONES,URINE 2+ (NEGATIVE); LEUKOCYTE ESTERASE ,URINE NEGATIVE (NEGATIVE); NITRITE,URINE NEGATIVE (NEGATIVE); PH,URINE 5.5 (5-9); PROTEIN,URINE 2+ (NEGATIVE)
[2021-02-14] MEDS ORDERED: fentaNYL INJ 100 MCG/2 ML AMP IVP ONE (22:15)
[2021-02-14] MEDS ORDERED: fentaNYL INJ 100 MCG/2 ML AMP ONE (22:16)
--- NOTE | 2021-02-14 22:17 | ED Back Pain ---
General Chief Complaint: Back Problems Stated Complaint: LOW BACK PAIN / VOMITING Nursing Triage Note: PT AMBULATE TO ROOM 07 WITH C/O LEFT FLANK PAIN TODAY AT 1400. PT REPORTS HAVING WEIGHT LOSS SURGERY THAT INVOLVED REMOVAL OF PART OF STOMACH X2 WEEKS AGO. PT REPORTS NAUSEA. PT DENIES VOMITING. Source of Information: Patient Exam Limitations: No Limitations History of Present Illness Date Seen by Provider: Feb 14, 2021 Time Seen by Provider: 21:31 Initial Comments Patient to the ER by private conveyance with chief that about 2 PM he was struck with some sharp left flank pain. He has a history of kidney stones. He says this feels different however he is tender over his costovertebral angle. At 1800 he started having some dry heaves. No fevers diarrhea but he feels constipated. Took some milk of mag today but had no movement. Allergies and Home Medications Allergies Coded Allergies: lisinopril (Verified Allergy, Severe, 01/25/21) Penicillins (Verified Allergy, Unknown, RASH, 12/13/16) amoxicillin (Verified Adverse Reaction, Severe, yeast infection, 12/13/16) Home Medications Amlodipine Besylate 10 Mg Tablet, 10 MG PO DAILY, (Reported) Cephalexin 500 Mg Tablet, 500 MG PO BID Prescribed by: WILFREDO PIERSON on 02/14/212341 Hydrocodone/Acetaminophen 1 Each Tablet, 1-2 TAB PO Q4H PRN for PAIN-MODERATE (5-7) Prescribed by: WILFREDO PIERSON on 02/14/212341 Ondansetron 4 Mg Tab.rapdis, 4 MG PO Q4H Prescribed by: JULIO VELÁSQUEZ on 01/28/21910 Ondansetron 4 Mg Tab.rapdis, 4 MG PO Q6H PRN for NAUSEA/VOMITING Prescribed by: WILFREDO PIERSON on 02/14/212341 Pantoprazole Sodium 40 Mg Granpkt.dr, 40 MG PO DAILY Prescribed by: JULIO VELÁSQUEZ on 01/28/21910 Tamsulosin HCl 0.4 Mg Cap, 0.4 MG PO DAILY Prescribed by: WILFREDO PIERSON on 02/14/212341 Tramadol HCl 50 Mg Tablet, 50 MG PO Q6H PRN for PAIN-MODERATE (5-7) Prescribed by: JULIO VELÁSQUEZ on 01/28/21 0911 Patient Home Medication List Home Medication List Reviewed: Yes Review of Systems Constitutional: No chills EENTM: No ear discharge Respiratory: No cough, No short of breath Cardiovascular: No edema, No palpitations Gastrointestinal: No abdominal pain, No nausea, No vomiting Genitourinary: No dysuria, No frequency, No hematuria All Other Systems Reviewed Negative Unless Noted: Yes Past Zmaxniq-Lyyjqy-Usboov Hx Patient Social History Tobacco Use?: No Smoking Status: Former Smoker Substance use?: Yes Substance type: Marijuana Substance frequency: Daily Alcohol Use?: No Pt feels they are or have been: No Immunizations Up To Date Tetanus Booster (TDap): More than 5yrs Seasonal Allergies Seasonal Allergies: Yes Past Medical History Surgeries: Yes Orthopedic Respiratory: No Currently Using CPAP: No Currently Using BIPAP: No Cardiac: Yes Hypertension Neurological: No Reproductive Disorders: No Genitourinary: Yes Kidney Stones Gastrointestinal: No Musculoskeletal: No Endocrine: Yes Diabetes, Non-Insulin dep HEENT: Yes (GLASSES) Loss of Vision: Denies Cancer: No Psychosocial: Yes Depression Integumentary: No Blood Disorders: No Physical Exam Vital Signs Vital Signs - First Documented 02/14/21 02/14/21 21:41 23:53 Temp 36.1 Pulse 82 Resp 19 B/P (MAP) 141/94 (110) Pulse Ox 98 O2 Delivery Room Air Capillary Refill : Less Than 3 Seconds Height, Weight, BMI Height: 6'1.00" Weight: 260lbs. 0.0oz. [id number]; 32.00 BMI Method:Stated General Appearance: WD/WN, Mild Distress HEENT: PERRL/EOMI, Normal ENT Inspection, Moist Mucous Membranes Neck: Full Range of Motion, Normal Inspection Cardiovascular: Regular Rate, Rhythm, No Edema, Normal Peripheral Pulses Respiratory: No Accessory Muscle Use, No Respiratory Distress Gastrointestinal: Normal Bowel Sounds, No Organomegaly, Non Tender, Soft Back: CVA Tenderness (L) Neurologic/Psychiatric: Alert, Oriented x3 Skin: Normal Color, Warm/Dry Procedures/Interventions Suture Size: 4-0 Progress/Results/Core Measures Results/Orders Lab Results Laboratory Tests Test 02/14/21 21:54 Range/Units Urine Color DARK YELLOW Urine Clarity SL CLOUDY Urine pH 5.5 5-9 Urine Specific [place] >=1.030 1.016-1.022 Urine Protein 2+ H NEGATIVE Urine Glucose (UA) NEGATIVE NEGATIVE Urine Ketones 2+ H NEGATIVE Urine Nitrite NEGATIVE NEGATIVE Urine Bilirubin 2+ H NEGATIVE Urine Urobilinogen 1.0 < = 1.0 MG/DL Urine Leukocyte Esterase NEGATIVE NEGATIVE Urine RBC (Auto) 3+ H NEGATIVE Urine RBC >100 H /HPF Urine WBC 10-25 H /HPF Urine Crystals NONE /LPF Urine Bacteria FEW H /HPF Urine Casts NONE /LPF Urine Mucus SMALL H /LPF Urine Culture Indicated YES My Orders Orders - WILFREDO PIERSON Ua Culture If Indicated (02/14/21 21:03) Ct Abd/Pelvis Wo(Kidney Stone) (02/14/21 22:09) Fentanyl Inj (Sublimaze Injection) (02/14/21 22:15) Fentanyl Inj (Sublimaze Injection) (02/14/21 22:16) Urine Culture (02/14/21 21:54) Cephalexin Capsule (Keflex Capsule) (02/14/21 23:45) Rx-Hydrocodone/Apap 5-325 Mg (Rx-Vicodin (02/14/21 23:45) Rx-Ondansetron Po (Rx-Zofran Po) (02/14/21 23:43) Medications Given in ED Current Medications Medications Dose Ordered Sig/Akiko Route Start Time Stop Time Status Last Admin Dose Admin Acetaminophen/ Hydrocodone Bitart 1 ea Q4H PRN PO 02/14/21 23:45 02/14/21 23:54 DC 02/14/21 23:50 1 EA Cephalexin HCl 500 mg ONCE ONCE PO 02/14/21 23:45 02/14/21 23:46 DC 02/14/21 23:50 500 MG Fentanyl Citrate 50 mcg ONCE ONCE IVP 02/14/21 22:15 02/14/21 22:16 DC 02/14/21 22:18 50 MCG Vital Signs/I&O 02/14/21 02/14/21 21:41 23:53 Temp 36.1 36.1 Pulse 82 79 Resp 19 18 B/P (MAP) 141/94 (110) 123/88 (110) Pulse Ox 98 O2 Delivery Room Air Room Air Blood Pressure Mean: 110 Progress Progress Note : Time: 22:17 Progress Note Fentanyl for pain, CT stone study and urinalysis. Diagnostic Imaging Diagonstic Imaging: CT Plain Films/CT/US/NM/MRI: abdomen, pelvis Comments 6 mm calculus within the proximal left ureter which causes mild hydronephrosis. Reviewed: Reviewed Night Hawk Study, Reviewed by Me Departure Impression Primary Impression: Left ureteral stone Disposition: 01 HOME, SELF-CARE Condition: Stable Departure-Patient Inst. Decision time for Depature: 23:39 Referrals: CAMILLE MEYERS MD (PCP/Family) Primary Care Physician CARRILLO CLAY MD Patient Instructions: Kidney Stones (DC) Add. Discharge Instructions: Drink lots of fluids. Tylenol 650 mg every 8 hours as needed for pain. Motrin 800 mg every 8 hours as needed for pain. Heat applied to the back as needed. Hydrocodone 1 tablet every 6 hours as necessary for breakthrough pain. Flomax 1 capsule daily until you pass the stones. Ondansetron 1 tablet every 6 hours under the tongue as necessary for nausea and/or vomiting. Keflex 1 capsule twice a day for the next week to treat possible UTI. Strain your urine using the strainer to see when the stones pass. Occasionally stones will break up and not be caught in the strainer. Symptoms should resolve 1 to 2 days after the passing of stones. I suggest you follow-up with Dr. Clay, urology. Return to the nearest ER if you are having intractable pain and/or nausea, fever etc. All discharge instructions reviewed with patient and/or family. Voiced understanding. Scripts Tamsulosin HCl (Flomax) 0.4 Mg Cap 0.4 MG PO DAILY for 7 Days, #7 CAP 0 Refills Prov: WILFREDO PIERSON 02/14/21 Ondansetron (Ondansetron Odt) 4 Mg Tab.rapdis 4 MG PO Q6H PRN for NAUSEA/VOMITING, #8 TAB 0 Refills Prov: WILFREDO PIERSON 02/14/21 Cephalexin (Cephalexin) 500 Mg Tablet 500 MG PO BID for 7 Days, #14 TAB 0 Refills Prov: WILFREDO PIERSON 02/14/21 Hydrocodone/Acetaminophen (Hydrocodone-Acetamin 5-325 mg) 1 Each Tablet 1-2 TAB PO Q4H PRN for PAIN-MODERATE (5-7), #20 TAB 0 Refills Prov: WILFREDO PIERSON 02/14/21 Work/School Note: Work Release Form Date Seen in the Emergency Department: Feb 14, 2021 Return to Work: Feb 17, 2021 Restrictions: No Restrictions Copy Copies To 1: CARRILLO CLAY MD, TITUS J Feb 14, 2021 22:17
[2021-02-14 22:34] LABS: BACTERIA,URINE FEW /HPF; RBC,URINE >100 /HPF
[2021-02-14] MEDS ORDERED: ACHD5005 PO (23:42)
[2021-02-14] MEDS ORDERED: ONDA4TAB11 PO (23:42)
[2021-02-14] MEDS ORDERED: TMSL.4C PO (23:42)
[2021-02-14] MEDS ORDERED: CEPH500T PO (23:42)
[2021-02-14] MEDS ORDERED: RX-ONDANSETRON 4 MG ODT (ZOFRAN) PPK #4 PO STA (23:43)
[2021-02-14] MEDS ORDERED: CEPHALEXIN 250 MG (KEFLEX) CAP PO ONE (23:45)
[2021-02-14 23:53] VITALS: BP 123/88
--- NOTE | 2021-02-15 08:23 | Diagnostic Imaging Report ---
EXAMINATION: CT abdomen and pelvis without contrast. TECHNIQUE: Multiple contiguous axial images were obtained through the abdomen and pelvis without the use of intravenous contrast. All CT scans use one or more of the following dose optimizing techniques: automated exposure control, MA and/or KvP adjustment based on patient size and exam type or iterative reconstruction. HISTORY: Flank pain. COMPARISON: 12/13/2016 FINDINGS: Limited views of the lower thorax are unremarkable. The liver is normal without focal lesion. There is no biliary ductal dilation. Gallbladder is normal. Pancreas is normal. Spleen is normal. Adrenal glands are normal. Bilateral renal stones including a 6 mm stone in the proximal left ureter resulting in mild left hydronephrosis. Urinary bladder is normal. Visualized bowel is normal in caliber without obstruction or inflammation. No free fluid or air. No abdominal or pelvic lymphadenopathy. Aorta is normal in caliber without aneurysm. There are no suspicious osseous lesions. IMPRESSION: 1. Obstructing 6 mm stone in the proximal left ureter causing mild hydronephrosis. There is no significant disagreement with the preliminary report. Dictated by: Dictated on workstation # [id number]
== END 2021-02-14 23:54 | disposition home or self-care (01) ==
LOC: EDUNIT# 21:00 → ER 21:02
DX: N13.2 Hydronephrosis with renal and ureteral calculous obstruction (principal); I10 Essential (primary) hypertension; E11.9 Type 2 diabetes mellitus without complications; Z87.891 Personal history of nicotine dependence
CPT/HCPCS: 74176; 81000; 87088

== ENCOUNTER → 2021-02-17 | Outpatient (CLI) | payer MEDICARE, MEDICAID ==
[~2021-02-17] MED LIST changes: +CEPH500T PO; +NITR-65 PO; +TMSL.4C PO
--- NOTE | 2021-02-17 18:31 | Diagnostic Imaging Report ---
INDICATION: Left ureteral stone. EXAMINATION: AP abdominal film was obtained at 2:40 p.m. COMPARISON: 12/15/2016. Comparison also made to CT abdomen and pelvis from 02/14/2021. FINDINGS: Abdominal bowel gas pattern is unremarkable. There is moderate stool throughout the colon. There is no small bowel dilatation. There is a calcification overlying the left flank to the left of L2, which appears to correspond to the stone at the left UPJ seen on the previous study. There is no definite stone seen distally. IMPRESSION: There is a calcification to the left of L2 which appears to correspond to the left UPJ stone seen on the CT study of 02/14/2021. The bowel gas pattern appears unremarkable. Dictated by: Dictated on workstation # [id number]
== END ==
LOC: RAD 14:23
PROVIDERS: ATTEND Urology
DX: N20.1 Calculus of ureter (principal); M51.87 Other intervertebral disc disorders, lumbosacral region
CPT/HCPCS: 74018

== ENCOUNTER 2021-02-21 06:44 | Outpatient (CLI) | payer MEDICARE, MEDICAID ==
[~2021-02-21] VITALS: Ht 182.9 cm; Wt 108.0 kg
[~2021-02-21 06:44] MED LIST changes: -NITR-65 PO
[2021-02-22] MEDS ORDERED: NITR-65 PO (09:03)
[2021-02-22] MEDS ORDERED: TMSL.4C PO (09:03)
[2021-02-22] MEDS ORDERED: TRM50T PO (09:03)
== END 2021-02-21 09:36 | disposition home or self-care (01) ==
LOC: PREOP 06:44
PROVIDERS: ATTEND Urology
DX: Z01.818 Encounter for other preprocedural examination (principal)

== ENCOUNTER 2021-02-22 06:22 | Day surgery (SDC) | payer MEDICAID, MEDICARE ==
[2021-02-22] VITALS (11 sets, daily range): BP systolic 105–130; BP diastolic 66–85
[~2021-02-22] VITALS: Ht 182.9 cm; Wt 107.4 kg
[2021-02-22] MEDS ORDERED: LACTATED RINGERS 1,000 ML IV PRN (06:30)
[2021-02-22] MEDS ORDERED: fentaNYL INJ 100 MCG/2 ML AMP ONE (06:59)
[2021-02-22] MEDS ORDERED: proPOfol 200 MG/20 ML (DIPRIVAN) VIAL IV ONE (06:59)
[2021-02-22] MEDS ORDERED: ONDANSETRON 4 MG/2 ML (SDV) Z0FRAN ONE (06:59)
[2021-02-22] MEDS ORDERED: MIDAZOLAM 2 MG/2 ML (VERSED) VIAL ONE (06:59)
[2021-02-22] MEDS ORDERED: LIDOCAINE PF 2% 5 ML (XYLOCAINE) VIAL ONE (06:59)
--- NOTE | 2021-02-22 07:03 | Progress Note-Pre Operative ---
Pre-Operative Progress Note H&P Reviewed The H&P was reviewed, patient examined and no changes noted. Date Seen by Provider: Feb 22, 2021 Time Seen by Provider: 07:02 Date H&P Reviewed: Feb 22, 2021 Time H&P Reviewed: 07:02 Pre-Operative Diagnosis: LT PROXIMAL URETERAL STONE CARRILLO CLAY MD Feb 22, 2021 07:03
--- NOTE | 2021-02-22 07:25 | Progress Note-Post Operative ---
Post-Operative Progess Note Surgeon (s)/Hand Twister (s) Surgeon CARRILLO CLAY MD Hand Twister: NONE Pre-Operative Diagnosis LT PROXIMAL URETERAL STONE Post-Operative Diagnosis SAME Procedure & Operative Findings Date of Procedure 02/22/21 Procedure Performed/Findings LT ESWL Anesthesia Type GENERAL Estimated Blood Loss Estimated blood loss (mL): NONE Specimens/Packing Specimens Removed NONE Packing: NONE CARRILLO CLAY MD Feb 22, 2021 07:25
--- NOTE | 2021-02-22 07:27 | Discharge Inst-Urology ---
Discharge Inst-Urology Reconcile Patient Problems Problems Reviewed?: Yes Final Diagnosis LT PROXIMAL URETERAL STONE Patient Instructions/Follow Up Plan/Assessment/Instructions Please make appointment to been seen in office Wednesday 03/07, KUB prior to it. KUB on way home Post ESWL instructions Increase oral fluids for 48 hours and then as needed. Diet and Activity as tolerated. If questions or concerns contact your physician Or seek help at emergency department. CARRILLO CLAY MD Feb 22, 2021 07:27
[2021-02-22] MEDS ORDERED: KETOROLAC 30 MG/ML VIAL ONE (07:45)
[2021-02-22] MEDS ORDERED: FUROSEMIDE 40 MG/4 ML INJ (LASIX) ONE (07:45)
[2021-02-22] MEDS ORDERED: SEVOFLURANE (ULTANE) 15 ML INHAL SOLN ONE (07:50)
[2021-02-22] MEDS ORDERED: MEPERIDINE (DEMEROL) INJ 50 MG/ML IVP ONE (08:15)
[2021-02-22] MEDS ORDERED: morphine INJ 10 MG/ML 1ML (SYR OR VIAL) IVP ONE (08:15)
[2021-02-22] MEDS ORDERED: ONDANSETRON 4 MG/2 ML (SDV) Z0FRAN IVP PRN (08:15)
--- NOTE | 2021-02-22 09:01 | Anesthesia-General Post-Op ---
General Patient Condition Mental Status/LOC: Same as Preop Cardiovascular: Satisfactory Nausea/Vomiting: Absent Respiratory: Satisfactory Pain: Controlled Complications: Absent Post Op Complications Complications None Follow Up Care/Instructions Patient Instructions None needed. Anesthesia/Patient Condition Patient Condition Patient is doing well, no complaints, stable vital signs, no apparent adverse anesthesia problems. No complications reported per nursing. TAMI VARGAS CRNA Feb 22, 2021 09:01
[2021-02-22] MEDS ORDERED: NITR-65 PO (09:03)
[2021-02-22] MEDS ORDERED: TRM50T PO (09:03)
[2021-02-22] MEDS ORDERED: TMSL.4C PO (09:03)
--- NOTE | 2021-02-22 09:11 | Diagnostic Imaging Report ---
INDICATION: Left ureteral stone. COMPARISON: 02/17/2021 and 02/14/2021. TECHNIQUE: Two radiographs of the abdomen dated 02/22/2021. FINDINGS: The minimally visualized lung bases are clear. Post surgical changes within the left upper abdomen are again identified. A 5 mm calcification just lateral to the left L2 transverse process is again identified and stable from the prior examination. This corresponds to a ureterolith noted on a prior CT examination. Additional 1 cm calculus involving the superior pole of the right renal shadow. Nonobstructive bowel gas pattern. No free air. Scattered osseous degenerative changes without acute osseous abnormality. IMPRESSION: 5 mm proximal left ureteral calculus is again identified, appearing similar to the prior examinations. Right renal calculus is also noted measuring near 1 cm. Dictated by: Dictated on workstation # [id number]
--- NOTE | 2021-02-22 09:48 | Diagnostic Imaging Report ---
INDICATION: Kidney stone. COMPARISON: 02/22/2021 at 6:47 a.m. FINDINGS: 2 views of the abdomen demonstrate a persistent calcification left lateral to the L2-L3. Vertebral body measuring 4 mm. Bowel gas pattern is normal. IMPRESSION: Unchanged calcification on the left. Dictated by: Dictated on workstation # [id number]
--- NOTE | 2021-02-22 12:48 | OPERATIVE REPORT ---
DATE OF SERVICE: 02/22/2021 PREOPERATIVE DIAGNOSIS: Left proximal ureteral stone. POSTOPERATIVE DIAGNOSIS: Left proximal ureteral stone. OPERATION PERFORMED: Left ESWL. SURGEON: Maldonado Clay MD ANESTHESIA: General. COMPLICATIONS: None. DESCRIPTION OF PROCEDURE: Under satisfactory general anesthesia, the patient in supine position on the ESWL table, the left proximal stone was localized. Shocks were delivered at kV of 6, a total of 3000 shocks completely fragmented the stone. The patient received 40 mg of Lasix and 30 mg of Toradol IV at the end of the procedure. He tolerated the procedure and anesthesia well and was sent to recovery room in stable condition. Job ID: [id number] DocumentID: [id number] Dictated Date: 02/22/2021 07:46:53 Tire Mechanic Date: 02/22/2021 12:47:56 Dictated By: MALDONADO CLAY MD
== END 2021-02-22 10:33 ==
LOC: SDC 06:22
PROVIDERS: ATTEND Urology
DX: N20.1 Calculus of ureter (principal); I10 Essential (primary) hypertension; K21.9 Gastro-esophageal reflux disease without esophagitis; E11.9 Type 2 diabetes mellitus without complications
CPT/HCPCS: 74018; 82947; 87081

== ENCOUNTER → 2021-09-21 | Outpatient (CLI) | payer MEDICARE ==
[~2021-09-21] MED LIST changes: +CLIN-144 PO; -CLIN300C12 PO; +NITR-65 PO
--- NOTE | 2021-09-21 15:51 | Diagnostic Imaging Report ---
INDICATION: Left-sided ureteral calculus. COMPARISON: 02/22/2021. FINDINGS: Two frontal supine radiographic views of the abdomen were obtained. Calculus identified projecting over the lateral margins of the left psoas muscle on prior exam. There is now calcification projecting over the left hemipelvis. This is suspicious for migration into the distal left ureter. Additional calculus is again identified projecting over the superior pole of the right renal shadow. No unexpected radiopaque foreign bodies are identified. Small bowel loops are nondistended. There is no large collection of free intraperitoneal air. IMPRESSION: 1. Findings suspicious for migration of calculus into the distal left ureter. 2. Redemonstration right renal intraperitoneal Dictated by: Dictated on workstation # [id number]
== END ==
LOC: RAD 14:15
PROVIDERS: ATTEND Urology
DX: N20.1 Calculus of ureter (principal)
CPT/HCPCS: 74018

== ENCOUNTER → 2021-09-27 | Outpatient (CLI) | payer MEDICARE ==
--- NOTE | 2021-09-27 12:25 | Diagnostic Imaging Report ---
INDICATION: Left-sided flank pain, history of kidney stones. TECHNIQUE: Multiple contiguous axial images were obtained through the abdomen and pelvis without the use of intravenous contrast. Auto Exposure Controls were utilized during the CT exam to meet ALARA standards for radiation dose reduction. Comparison made prior study 02/14/2021 Visualized portions of the lung bases are clear. There were no pleural fluid collections. There is no free intraperitoneal air. The liver and gallbladder appear normal. The spleen, adrenals, and pancreas are normal. The right kidney shows a stone in the superior pole calyx measuring about a centimeter in diameter. There is a small stone in the superior pole calyx of the left kidney. There is a irregular calcification in the left side of the pelvis measuring about 9 mm, which may represent a stone in the distal ureter. There is minimal hydronephrosis of the left kidney. There is no retroperitoneal mass or adenopathy. There are postoperative changes status post gastric sleeve. There is no sign of bowel obstruction or focal bowel wall thickening. There is no pelvic mass. IMPRESSION: There are nonocclusive stones in both kidneys, right larger than left. There is an irregular calcification in the left-sided pelvis which appears to be in the left distal ureter, with minimal left hydronephrosis. There are postoperative changes status post gastric sleeve. There is no sign of bowel obstruction or abnormal fluid collection. Dictated by: Dictated on workstation # [id number]
== END ==
LOC: RAD 11:45
PROVIDERS: ATTEND Urology
DX: N20.0 Calculus of kidney (principal); Z98.890 Other specified postprocedural states
CPT/HCPCS: 74176